=== PATIENT | male | born 1965 | race Caucasian/White ===

== ENCOUNTER 2020-02-20 08:08 | Outpatient (REF) | payer BC, SELFPAY | END 2020-02-20 08:09 | disposition home or self-care (01) | LOC: HO.HMGCLDS 08:08 | PROVIDERS: PCP Internal Medicine; Visit Provider Internal Medicine | DX: Z20.828 Contact with and (suspected) exposure to other viral communicable diseases (principal) | CPT/HCPCS: C9803; U0003 ==

== ENCOUNTER 2020-08-17 10:24 | Outpatient (REF) | payer BC, SELFPAY ==
[2020-08-17 10:59] LABS: MANUAL DIFF FLAG NO
[2020-08-17 11:02] LABS: Basophils Absolute Auto 0.1 X10*3/uL (0.0-0.2); Basophils Percent Auto 0.7 % (0-2); Eosinophils Absolute Auto 0.5 X10*3/uL (0.0-0.4); Eosinophils Percent Auto 7.1 % (0-4); Hematocrit 47.4 % (42-52); Hemoglobin 15.2 g/dl (14.0-18.0); Imm Gran Abs Auto 0.02 X10*3/uL (0.00-0.03); Imm Gran Pct Auto 0.3 % (0.0-0.4); Lymphocytes Absolute Auto 2.6 X10*3/uL (1.2-4.9); Lymphocytes Percent Auto 37.7 % (20-40); Mean Corpuscular HGB Conc 32.1 g/dl (31.0-36.0); Mean Corpuscular Hemoglobin 29.5 pg (27.0-33.0); Mean Platelet Volume 9.7 fL (9.4-12.4); Monocytes Absolute Auto 0.9 X10*3/uL (0.1-1.2); Monocytes Percent Auto 13.3 % (2-11); Neutrophils Absolute Auto 2.8 X10*3/uL (2.0-8.3); Neutrophils Percent Auto 40.9 % (45-73); Platelet Count 256 X10*3/uL (160-400); Red Blood Count 5.15 X10*6/uL (4.60-5.80); Red Cell Distribution Width 13.5 % (11.0-16.0); White Blood Count 6.8 X10*3/uL (4.8-10.8)
[2020-08-17 11:18] LABS: Alanine Aminotransferase 48 U/L (0-40); Albumin Level 4.4 g/dL (3.5-5.0); Alkaline Phosphatase 71 U/L (39-117); Anion Gap 12 (12-20); Aspartate Amino Transferase 38 U/L (5-37); Bilirubin Total 0.5 mg/dL (0.0-1.0); Blood Urea Nitrogen 16 mg/dL (9-16); Calcium 9.9 mg/dL (8.4-10.2); Carbon Dioxide 24 mmol/L (22-29); Chloride 106 mmol/L (96-108); Cholesterol 206 mg/dL; Estimated Glomerular Filt Rate > 60; Glucose Fasting 101 mg/dL (60-99); HDL Cholesterol 73 mg/dL; LDL Cholesterol Calculated 106 mg/dl; Potassium 4.8 mmol/L (3.3-5.1); Sodium 137 mmol/L (135-145); Total Protein 7.3 g/dL (6.5-8.0); Triglycerides 137 mg/dL
[2020-08-17 11:40] LABS: Prostate Specific Antigen Scr 1.12 ng/mL (<0.05-4.0)
== END 2020-08-17 10:25 | disposition home or self-care (01) ==
LOC: HO.LAB 10:24
PROVIDERS: PCP Internal Medicine; Visit Provider Internal Medicine
DX: Z00.00 Encounter for general adult medical examination without abnormal findings (principal); Z12.5 Encounter for screening for malignant neoplasm of prostate
CPT/HCPCS: 36415; 80053; 80061; 84153; 85025

== ENCOUNTER → 2021-06-26 09:16 | Outpatient (BNVA) | payer BC, SELFPAY | PROVIDERS: PCP Internal Medicine; Referring Provider Internal Medicine; Visit Provider Internal Medicine Gastroenterology | DX: Z13.89 Encounter for screening for other disorder (principal) ==

== ENCOUNTER 2021-09-30 07:45 | Outpatient (REF) | payer BC, SELFPAY ==
--- NOTE | ~2021-09-30 | US_ITS ---
EXAMINATION: US ABDOMEN COMPLETE CLINICAL INFORMATION: Hemangioma of intra-abdominal structures. Elevated LFTs. COMPARISON: CT abdomen and pelvis 07/17/2013, MRI abdomen 06/23/2008, ultrasound abdomen 05/14/2008. TECHNIQUE: Real-time imaging of the abdominal viscera. FINDINGS: PANCREAS: Mostly obscured by gas. ABDOMINAL AORTA: The proximal, mid, and distal segments are normal in caliber. INFERIOR VENA CAVA: Visualized portions are normal. LIVER: The liver is normal in size. The liver contour is normal. There is increased liver echogenicity. No focal hepatic lesion. There is no intrahepatic biliary duct dilatation seen. GALLBLADDER: Gallbladder wall thickness is 0.3 cm. The gallbladder is physiologically distended without evidence of stones, sludge, polyps, wall thickening or pericholecystic fluid. COMMON BILE DUCT: Normal in caliber measuring 0.3 cm in diameter. RIGHT KIDNEY: Normal. No hydronephrosis. No renal calculi or focal parenchymal lesions. The kidney measures 11.6 cm in maximum dimension. LEFT KIDNEY: Normal. No hydronephrosis. No renal calculi or focal parenchymal lesions. The kidney measures 11.6 cm in maximum dimension. SPLEEN: Normal. The spleen measures 9.8 cm in maximum dimension. FREE FLUID: None. US/US abdomen complete IMPRESSION: Mild hepatic steatosis without focal lesion. Otherwise unremarkable complete abdomen ultrasound.
== END 2021-09-30 07:46 | disposition home or self-care (01) ==
LOC: HO.US 07:45
PROVIDERS: PCP Internal Medicine; Visit Provider Internal Medicine Gastroenterology
DX: D18.03 Hemangioma of intra-abdominal structures (principal); R79.89 Other specified abnormal findings of blood chemistry
CPT/HCPCS: 76700

== ENCOUNTER 2021-10-10 10:03 | Day surgery (SDC) | payer BC, SELFPAY ==
--- NOTE | 2021-10-09 11:47 | HO.ANESPROP2 ---
HPI - Anesthesia Eval Consult details Narrative: 56yo M for Upper Endoscopy and Colonoscopy PMFSH Active Problems Active Problems: All Active Problems (Updated 10/06/21 @ 11:53 by Becca Cueva RN) GERD (gastroesophageal reflux disease) (Acute) Hepatic hemangioma (Acute) Chronic diarrhea (Acute) Lactose intolerance (Acute) Mood disorder (Acute) Elevated LFTs (Acute) History of colon polyps (Acute) Past Medical History Medical History (Updated 10/06/21 @ 11:53 by Becca Cueva RN) Acromioclavicular joint arthritis Chronic hepatitis Forearm fractures, both bones, closed (~08/2011) Pulmonary embolism and infarction (~06/2011) Rotator cuff impingement syndrome Surgical History Surgical History (Updated 10/06/21 @ 11:50 by Becca Cueva RN) History of right inguinal hernia repair Hx of colonoscopy Hx of colonoscopy S/P right rotator cuff repair (~11/2011) Social History Social History Patient Tobacco Use Status: Current everyday Tobacco user Tobacco use type: Cigarette Cigarette Packs Per Day: 0.5 Cigarettes Per Day: 10.0 Second Hand Smoke Exposure: No Use of substances other than those prescribed or required for medical reasons: No Are you DNR?: No Advance Directives: No Advance Directives Information Provided: Yes Advance Directives on File: No Meds Allergies Allergy/AdvReac Type Severity Reaction Status Date / Time No Known Allergies Allergy Verified 06/26/21 09:19 Home Medications Medication Instructions Recorded Confirmed Last Taken Type omeprazole 20 mg capsule,delayed 20 mg PO DAILY 06/26/21 10/06/21 Unknown History release tadalafil 5 mg tablet mg PO 06/26/21 06/26/21 Unknown History Exam Exam Date and Time: October 09, 2021 1147 Assessment and Plan Assessment Anesthesia Assessment: Chart Reviewed
[2021-10-10 10:11] VITALS: BMI 28.6
--- NOTE | 2021-10-10 10:15 | MHC.SHP ---
Pre-Procedural Eval Section A Date of Service: 10/10/21 The patient is an INPATIENT: No The History & Physical has been completed within 30 days and I have reviewed it.: No Section B Chief Complaint: screening reflux Details of Present Illness: GERD, colon cancer screening Relevant Family History (Specify if Yes): No Present Medications: see Short Stay Collaborative assessment Medical History: Significant History (Acromioclavicular joint arthritis Chronic hepatitis Forearm fractures, both bones, closed (~08/2011) Pulmonary embolism and infarction (~06/2011) Rotator cuff impingement syndrome) History of Previous Operations: Relevant previous surgery/procedure and date(s) (Acromioclavicular joint arthritis Chronic hepatitis Forearm fractures, both bones, closed (~08/2011) Pulmonary embolism and infarction (~06/2011) Rotator cuff impingement syndrome) Allergies: Allergies Allergy/AdvReac Type Severity Reaction Status Date / Time No Known Allergies Allergy Verified 06/26/21 09:19 Review of Systems Sugical H&P ROS: Negative: Constitution, Cardiovascular, Respiratory and Gastrointestinal Exam Surgical H&P Exam: Normal: Heart, Normal: Lungs, Normal: Extremities and Normal: Abdomen Plan Diagnosis/Plan: Unchanged I have reviewed the history and physical and performed a pertinent physical examination on my patient. No changes have occurred unless specified.
[2021-10-10 10:20] VITALS: BP 138/81; PULSE 77; RESP 16; TEMP 36.4; O2SAT 97
[2021-10-10] MEDS: Lactated Ringers 1,000 ML 100 ML IVCONT (10:28)
--- NOTE | 2021-10-10 11:19 | P.BOP_ITS ---
Brief Operative Note Date of Service: 10/10/21 Pre-op diagnosis: Colon cancer screening, GERD Post-op diagnosis: other (GERD, gastritis, colon polyps, diverticulosis, hemorrhoids) Procedure: FLEXIBLE TRANSORAL UPPER GASTROINTESTINAL ENDOSCOPY WITH BIOPSIES AND COLONOSCOPY TILL CECUM WITH SNARE POLYPECTOMY UPPER ENDOSCOPY Consent: Indications for the procedure and potential complications of bleeding, perforation, reaction to medications and missed diagnosis were discussed with the patient and informed consent was obtained. Instrument: Olympus GIF H 190 mid size upper endoscope Monitoring: Vital signs and clinical assessment, continuous EKG monitoring, Pulse oximetry, Carbon Dioxide monitoring and blood pressure monitoring were done throughout the procedure. Procedure: The patient was placed in the left lateral decubitis position and pre-procedure medications were administered and a bite block was placed. The endoscope was inserted into the mouth and advanced under direct vision to the third part of duodenum. A careful inspection was made as the upper endoscope was withdrawn including a retroflexed examination of the proximal stomach; Findings and interventions are described below. Findings: Larynx: Normal Esophagus: GE junction at 40 cms. No esophagitis. A 1 cms tongue of possible Dewey's - biopsied. Stomach: Mild gastric erythema. Biopsies were obtained. Grade 2 flap valve on retroflexed examination of the cardia. Duodenum: Normal bulb and descending duodenum Intervention: Biopsies as noted above COLONOSCOPY PROCEDURE NOTE Consent: Indications for the procedure and potential complications of bleeding, perforation, reaction to medications and missed diagnosis were discussed with the patient and informed consent was obtained. Instrument: Olympus PCF H 190 L variable stiffness pediatric colonoscope Monitoring: Vital signs and clinical assessment, intermittent blood pressure monitoring, continuous EKG monitoring, Pulse oximetry and Carbon Dioxide monitoring were done throughout the procedure. Colon withdrawl time was 22 minutes. Procedure: The patient was placed in the left lateral decubitis position and pre-procedure medications were administered. After a digital rectal examination of the ano-rectum, the video colonoscope was inserted into the rectum and advanced through the colon to the cecum. The colonoscope was slowly withdrawn in a retrograde panoramic fashion and the colon mucosa was carefully examined including a retroflexed view of the rectum. Findings and interventions are described below. Procedure Difficulty: : Without difficulty Findings: Terminal Ileum: Not evaluated Cecum: Normal Ascending Colon: Scattered diverticulosis throughout the colon Transverse Colon: Scattered diverticulosis throughout the colon Descending Colon: Scattered diverticulosis throughout the colon Sigmoid Colon: Two 10-12 mm sessile polyps removed with a hot snare. Moderate diverticulosis Rectum: Normal Ano-rectum: Moderate internal hemorrhoids Colon preparation: Good after some irrigation. There was a thin layer of adherent stool in the right colon which could not be flushed off Impression and Post Procedure Diagnosis: Endoscopy Findings: ESOPHAGUS: GE junction at 40 cms. No esophagitis. A 1 cms tongue of possible Dewey's - biopsied. STOMACH: Mild antral gastritis Colonoscopy Findings: Two medium sized polyps removed Moderate diverticulosis seen in the entire colon Moderate hemorrhoids on retroflexed exam. Plan: Await pathology results Patient has an appointment on 10/23/21 in the [facility] with Eldon Rosen M.D. Repeat Colonoscopy interval based on path results - in 3-5 years if polyps are adenomatous and 5 years if polyps are hyperplastic. Above findings were reviewed with the patient and GERD, colon polyps and diverticulosis handouts were given in the discharge area Surgeon: Eldon Rosen MD Anesthesia: MAC (Dr Marquis) Was an Tax Investigator used for this Procedure?: Yes Tax Investigator: Tariq He Estimated blood loss (mL): 0 Pathology: other (A: ANTRUM BXS R/O H PYLORI B: DISTAL ESOPHAGUS BXS R/O BARRETTS C: SIGMOID COLON POLYPS) Condition: stable Disposition: PACU
[2021-10-10 12:18] VITALS: BP 111/76; PULSE 74; RESP 17; TEMP 36.9; O2SAT 96
[2021-10-10 12:33] VITALS: BP 119/82; PULSE 76; RESP 18; TEMP 36.9; O2SAT 97
--- NOTE | 2021-10-10 15:04 | W.PM.OPN ---
Operative Note Operative Note Date of Service: 10/10/21 Narrative: Pre-op diagnosis: Colon cancer screening, GERD Post-op diagnosis:?other (GERD, gastritis, colon polyps, diverticulosis, hemorrhoids) Procedure: FLEXIBLE TRANSORAL UPPER GASTROINTESTINAL ENDOSCOPY WITH BIOPSIES AND COLONOSCOPY TILL CECUM WITH SNARE POLYPECTOMY UPPER ENDOSCOPY Consent:?Indications for the procedure and potential complications of bleeding, perforation, reaction to medications and missed diagnosis were discussed with the patient and informed consent was obtained. Instrument:?Olympus GIF H 190 mid size upper endoscope Monitoring: Vital signs and clinical assessment, continuous EKG monitoring, Pulse oximetry, Carbon Dioxide monitoring and blood pressure monitoring were done throughout the procedure. Procedure:?The patient was placed in the left lateral decubitis position and pre-procedure medications were administered and a bite block was placed. The endoscope was inserted into the mouth and advanced under direct vision to the third part of duodenum. A careful inspection was made as the upper endoscope was withdrawn including a retroflexed examination of the proximal stomach; Findings and interventions are described below. Findings: Larynx:? Normal Esophagus:?GE junction at 40 cms. No esophagitis. A 1 cms tongue of possible Dewey's - biopsied. Stomach:?Mild gastric erythema. Biopsies were obtained. Grade 2 flap valve on retroflexed examination of the cardia. Duodenum:?Normal bulb and descending duodenum Intervention:?Biopsies as noted above COLONOSCOPY PROCEDURE NOTE Consent:?Indications for the procedure and potential complications of bleeding, perforation, reaction to medications and missed diagnosis were discussed with the patient and informed consent was obtained. Instrument:?Olympus PCF H 190 L variable stiffness pediatric colonoscope Monitoring:?Vital signs and clinical assessment, intermittent blood pressure monitoring, continuous EKG monitoring, Pulse oximetry and Carbon Dioxide monitoring were done throughout the procedure. Colon withdrawl time was 22 minutes. Procedure:?The patient was placed in the left lateral decubitis position and pre-procedure medications were administered. After a digital rectal examination of the ano-rectum, the video colonoscope was inserted into the rectum and advanced through the colon to the cecum. The colonoscope was slowly withdrawn in a retrograde panoramic fashion and the colon mucosa was carefully examined including a retroflexed view of the rectum. Findings and interventions are described below. Procedure Difficulty:?: Without difficulty Findings: Terminal Ileum: Not evaluated Cecum:? Normal Ascending Colon:??Scattered diverticulosis throughout the colon Transverse Colon:??Scattered diverticulosis throughout the colon Descending Colon:? Scattered diverticulosis throughout the colon Sigmoid Colon:? Two 10-12 mm sessile polyps removed with a hot snare. Moderate diverticulosis Rectum:??Normal Ano-rectum:??Moderate internal hemorrhoids Colon preparation:? Good after some irrigation. There was a thin layer of adherent stool in the right colon which could not be flushed off Impression and Post Procedure Diagnosis: Endoscopy Findings: ESOPHAGUS: GE junction at 40 cms. No esophagitis. A 1 cms tongue of possible Dewey's - biopsied. STOMACH: Mild antral gastritis Colonoscopy Findings: Two medium sized polyps removed Moderate diverticulosis seen in the entire colon Moderate hemorrhoids on retroflexed exam. Plan: Await pathology results Patient has an appointment on 10/23/21 in the GI Clinic with Eldon Rosen M.D. Repeat Colonoscopy interval based on path results - in 3-5 years if polyps are adenomatous and 5 years if polyps are hyperplastic. Above findings were reviewed with the patient and GERD, colon polyps and diverticulosis handouts were given in the discharge area Surgeon: Eldon Rosen MD Anesthesia:?MAC (Dr Marquis) Was an [employer] Executive Director used for this Procedure?:?Yes [employer] Executive Director:?Tariq He Estimated blood loss (mL):?0 Pathology:?other (A: ANTRUM BXS R/O H PYLORI? B: DISTAL ESOPHAGUS BXS R/O BARRETTS? C: SIGMOID COLON POLYPS) Condition:?stable Disposition:?PACU
== END 2021-10-10 13:16 | disposition home or self-care (01) ==
PROVIDERS: PCP Internal Medicine; Visit Provider Internal Medicine Gastroenterology
PROC: (CPT 45385; principal; 2021-10-10 11:10)
DX: Z12.11 Encounter for screening for malignant neoplasm of colon (principal); Z86.010 Personal history of colon polyps; D12.5 Benign neoplasm of sigmoid colon; K57.30 Diverticulosis of large intestine without perforation or abscess without bleeding; K64.8 Other hemorrhoids; K21.9 Gastro-esophageal reflux disease without esophagitis; K29.60 Other gastritis without bleeding; D18.03 Hemangioma of intra-abdominal structures; E73.9 Lactose intolerance, unspecified; Z86.19 Personal history of other infectious and parasitic diseases; Z86.711 Personal history of pulmonary embolism; Z79.899 Other long term (current) drug therapy; F17.210 Nicotine dependence, cigarettes, uncomplicated
CPT/HCPCS: 45385; 43239; 88305; 88342

== ENCOUNTER 2021-12-12 14:17 | Outpatient (REF) | payer BC, SELFPAY ==
--- NOTE | ~2021-12-12 | US_ITS ---
EXAMINATION: US SOFT TISSUE NECK CLINICAL INFORMATION: Left-sided pain. Question clogged duct. COMPARISON: Neck CT June 2016 TECHNIQUE: Ultrasound of the left submandibular area. FINDINGS: There are 2 left cervical lymph node adjacent to the submandibular gland. These are upper normal in size and demonstrate normal ultrasound morphology. These measure 1.2 x 1.2 x 0.6 cm and 1.2 x 0.7 x 1.2 cm. Left submandibular gland is prominent and has a slightly heterogeneous echotexture. There is a tubular central cystic area questionable for duct dilatation. No stone is appreciated by ultrasound. US/US soft tiss head and/or neck IMPRESSION: Prominent slightly heterogeneous left submandibular gland with central cystic structure questionable for duct dilatation. Follow-up CT or MR imaging of the neck recommended. Adjacent left submandibular lymphadenopathy. Lymph nodes are upper normal in size and demonstrate normal ultrasound morphology and flow.
== END 2021-12-12 14:18 | disposition home or self-care (01) ==
LOC: HO.US 14:17
PROVIDERS: Visit Provider Internal Medicine
DX: D18.03 Hemangioma of intra-abdominal structures (principal); R79.89 Other specified abnormal findings of blood chemistry
CPT/HCPCS: 76536

== ENCOUNTER 2021-12-27 06:59 | Outpatient (REF) | payer BC, SELFPAY ==
[2021-12-27 07:20] LABS: MANUAL DIFF FLAG NO
[2021-12-27 08:24] LABS: Basophils Absolute Auto 0.1 X10*3/uL (0.0-0.2); Basophils Percent Auto 0.6 % (0-2); Eosinophils Absolute Auto 0.3 X10*3/uL (0.0-0.4); Eosinophils Percent Auto 4.3 % (0-4); Hematocrit 44.6 % (42.0-52.0); Hemoglobin 14.5 g/dl (14.0-18.0); Imm Gran Abs Auto 0.04 X10*3/uL (0.00-0.03); Imm Gran Pct Auto 0.5 % (0.0-0.4); Lymphocytes Absolute Auto 2.2 X10*3/uL (1.2-4.9); Lymphocytes Percent Auto 27.5 % (20-40); Mean Corpuscular HGB Conc 32.5 g/dl (31.0-36.0); Mean Corpuscular Hemoglobin 29.8 pg (27.0-33.0); Mean Corpuscular Volume 91.8 fL (80.0-98.0); Mean Platelet Volume 10.1 fL (9.4-12.4); Monocytes Percent Auto 12.8 % (2-11); Neutrophils Absolute Auto 4.3 x10*3/uL (2.0-8.3); Neutrophils Percent Auto 54.3 % (45-73); Platelet Count 241 X10*3/uL (160-400); Red Blood Count 4.86 X10*6/uL (4.60-5.80); Red Cell Distribution Width 12.8 % (11.0-16.0)
[2021-12-27 08:28] LABS: Prothrombin Time 11.1 SEC (10.0-13.1)
[2021-12-27 09:05] LABS: Alanine Aminotransferase 64 U/L (0-40); Albumin Level 4.4 g/dL (3.5-5.0); Alkaline Phosphatase 67 U/L (39-117); Anion Gap 16 (12-20); Aspartate Amino Transferase 51 U/L (5-37); Bilirubin Total 0.6 mg/dL (0.0-1.0); Blood Urea Nitrogen 16 mg/dL (9-16); Carbon Dioxide 22 mmol/L (22-29); Chloride 104 mmol/L (96-108); Estimated Glomerular Filt Rate > 60; Glucose Random 91 mg/dL (60-115); Potassium 3.9 mmol/L (3.3-5.1); Sodium 138 mmol/L (135-145); Total Protein 7.1 g/dL (6.5-8.0)
[2021-12-27 09:08] LABS: Alanine Aminotransferase 65 U/L (0-40); Albumin Level 4.4 g/dL (3.5-5.0); Alkaline Phosphatase 68 U/L (39-117); Anion Gap 15 (12-20); Aspartate Amino Transferase 51 U/L (5-37); Bilirubin Total 0.6 mg/dL (0.0-1.0); Blood Urea Nitrogen 16 mg/dL (9-16); Calcium 9.1 mg/dL (8.4-10.2); Carbon Dioxide 22 mmol/L (22-29); Chloride 104 mmol/L (96-108); Cholesterol 190 mg/dL; Estimated Glomerular Filt Rate > 60; Glucose Random 91 mg/dL (60-115); HDL Cholesterol 63 mg/dL; LDL Cholesterol Calculated 106 mg/dl; Lipase 66 U/L (8-78); Sodium 137 mmol/L (135-145); Total Protein 7.1 g/dL (6.5-8.0); Triglycerides 109 mg/dL
[2021-12-27 09:31] LABS: Vitamin D 25-OH Total 39.7 ng/mL (>30)
[2021-12-27 09:32] LABS: Prostate Specific Antigen 1.02 ng/mL (<0.05-4.0)
[2021-12-27 09:49] LABS: Vitamin B12 485 pg/mL (200-900)
[2021-12-29 04:57] LABS: ~HepC Num1 11.84 S/CO (0.00-0.79); ~Hepatitis C Antibody Reactive (Nonreactive)
== END 2021-12-27 07:00 | disposition home or self-care (01) ==
LOC: HO.LAB 06:59
PROVIDERS: Internal Medicine Gastroenterology; Visit Provider Internal Medicine
DX: Z00.00 Encounter for general adult medical examination without abnormal findings (principal); R79.89 Other specified abnormal findings of blood chemistry; K21.9 Gastro-esophageal reflux disease without esophagitis; Z13.220 Encounter for screening for lipoid disorders; Z12.5 Encounter for screening for malignant neoplasm of prostate
CPT/HCPCS: 36415; 80053; 80061; 82306; 82607; 83690; 84153; 85025; 85610; 86803

== ENCOUNTER 2021-12-31 07:39 | Outpatient (REF) | payer BC, SELFPAY ==
--- NOTE | ~2021-12-31 | CT_ITS ---
EXAMINATION: CT SOFT TISSUE NECK WITH CONTRAST CLINICAL INFORMATION: 56-year-old with left neck mass. COMPARISON: 12/12/2021 ultrasound, 07/06/2016 CT neck. TECHNIQUE: Following the intravenous administration of 60 mL of Omnipaque 350 intravenous contrast, helical imaging was performed in the axial plane with generation of coronal and sagittal reformatted images. This CT examination was performed using dose optimization techniques as appropriate, variously including the following: *Automated exposure control *Adjustment of mA and/or kV according to patient size (this includes techniques or standardized protocols for targeted exams where dose is matched to indication/reason for exam; i.e. extremities or head) *Use of iterative reconstruction technique DLP: 403 mGy-cm. Skull Base: The bony skull base and visualized calvarium appear grossly intact.?Limited assessment of the visualized intracranial and orbital soft tissue structures is unrevealing.?The visualized mastoids, middle ear cavities and sinonasal cavity are clear. Suprahyoid Neck: The nasopharynx and retropharynx, stack attendant and parapharyngeal spaces appear within normal limits with a normal appearance to the oropharynx. There is a tiny calcified tonsillolith in the left pharyngeal tonsil, stable in appearance. Parotid glands are bilaterally symmetric and normal in morphology and attenuation. Streak and beam hardening artifact partially obscures evaluation of the oral cavity. Note is made of a 4 mm calculus in the anterior portion of Yessenia's duct on the left, which is smaller and more distally located than a previously identified calculus in the more proximal aspect of Gilpin's duct. Additionally, there is a 2 mm calculus in the proximal aspect of Gilpin's duct on the left, which is similar to previous study. No calculi are seen on the right. The floor of the mouth structures are otherwise intact and unremarkable. The right submandibular gland appears within normal limits. The left submandibular gland has reduced in size since the previous CT likely reflecting resolution of sialoadenitis from the previous scan. There is intraglandular ductal prominence of the left submandibular gland on the current study consistent with a mild degree of sialectasia. There are multiple, nonpathologic-appearing lymph nodes in the submandibular space, submental space and IJ chains bilaterally, which are stable in appearance from previous CT. Infrahyoid Neck: The hypopharynx and larynx appear within normal limits. The thyroid gland is within normal limits. No infrahyoid lymphadenopathy. Mild atheromatous changes of the carotid bulbs are noted bilaterally. Upper Chest: There are paraseptal pulmonary emphysematous changes in both upper lobes with a prominent subpleural bleb in the medial left lung apex similar in appearance to the previous study. The visualized mediastinum demonstrates scattered small nonenlarged lymph nodes similar to previous study. Skeletal: Multilevel DDD and spondylosis noted throughout the cervical spine, similar in appearance to the previous study. [id number] bilateral AC joint arthropathy noted on current study left more than right. Other Comments: None. CT/CT soft tissue neck w IV con IMPRESSION: 1. 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 2. Multiple upper cervical lymph nodes stable from previous CT consistent with benign findings. 3. Pulmonary parenchymal findings as discussed above similar to the previous exam and skeletal findings as discussed above.
[2021-12-31] MEDS: iohexoL 350 MG/ML 100 ML INFUS..BTL IV (08:39)
== END 2021-12-31 07:40 | disposition home or self-care (01) ==
LOC: HO.CT 07:39
PROVIDERS: Visit Provider Otolaryngology
DX: R22.1 Localized swelling, mass and lump, neck (principal)
CPT/HCPCS: 70491; Q9967

== ENCOUNTER 2023-02-27 07:03 | Outpatient (REF) | payer BC, SELFPAY ==
[2023-02-27 07:28] LABS: MANUAL DIFF FLAG NO
[2023-02-27 07:44] LABS: Basophils Absolute Auto 0.1 X10*3/uL (0.0-0.2); Basophils Percent Auto 0.7 % (0-2); Eosinophils Absolute Auto 0.3 X10*3/uL (0.0-0.4); Eosinophils Percent Auto 4.6 % (0-4); Hematocrit 45.2 % (42.0-52.0); Hemoglobin 15.1 g/dl (14.0-18.0); Imm Gran Abs Auto 0.03 X10*3/uL (0.00-0.03); Imm Gran Pct Auto 0.4 % (0.0-0.4); Lymphocytes Absolute Auto 2.7 X10*3/uL (1.2-4.9); Lymphocytes Percent Auto 38.8 % (20-40); Mean Corpuscular HGB Conc 33.4 g/dl (31.0-36.0); Mean Corpuscular Hemoglobin 29.8 pg (27.0-33.0); Mean Corpuscular Volume 89.2 fL (80.0-98.0); Mean Platelet Volume 9.3 fL (9.4-12.4); Monocytes Absolute Auto 0.8 X10*3/uL (0.1-1.2); Monocytes Percent Auto 12.2 % (2-11); Neutrophils Percent Auto 43.3 % (45-73); Platelet Count 215 X10*3/uL (160-400); Red Blood Count 5.07 X10*6/uL (4.60-5.80); Red Cell Distribution Width 13.4 % (11.0-16.0); White Blood Count 6.9 X10*3/uL (4.8-10.8)
[2023-02-27 08:10] LABS: Alanine Aminotransferase 69 U/L (0-40); Albumin Level 3.9 g/dL (3.5-5.0); Alkaline Phosphatase 72 U/L (39-117); Anion Gap 12 (12-20); Aspartate Amino Transferase 48 U/L (5-37); Bilirubin Total 0.7 mg/dL (0.0-1.0); Blood Urea Nitrogen 16 mg/dL (9-16); Calcium 8.9 mg/dL (8.4-10.2); Carbon Dioxide 24 mmol/L (22-29); Chloride 107 mmol/L (96-108); Cholesterol 204 mg/dL (<200); Estimated Glomerular Filt Rate > 60; Glucose Fasting 105 mg/dL (60-99); HDL Cholesterol 38 mg/dL (>40); Potassium 4.3 mmol/L (3.3-5.1); Sodium 139 mmol/L (135-145); Total Protein 7.1 g/dL (6.5-8.0); Triglycerides 582 mg/dL (<150)
[2023-02-27 08:33] LABS: Prostate Specific Antigen Scr 1.02 ng/mL (<0.05-4.0)
[2023-03-02 18:35] LABS: HCV Log PCR <1.18 NOT DETECTED Log IU/mL (NOT DETECTED); HepC Viral Load <15 NOT DETECTED IU/mL (NOT DETECTED)
== END 2023-02-27 07:04 | disposition home or self-care (01) ==
LOC: HO.LAB 07:03
PROVIDERS: PCP Internal Medicine; Visit Provider Internal Medicine
DX: Z12.5 Encounter for screening for malignant neoplasm of prostate (principal); R79.89 Other specified abnormal findings of blood chemistry; K21.9 Gastro-esophageal reflux disease without esophagitis; K57.90 Diverticulosis of intestine, part unspecified, without perforation or abscess without bleeding; Z86.19 Personal history of other infectious and parasitic diseases
CPT/HCPCS: 36415; 80053; 80061; 84153; 85025; 87522

== ENCOUNTER 2023-09-16 06:41 | Outpatient (REF) | payer BC, SELFPAY ==
[2023-09-16 08:14] LABS: Alanine Aminotransferase 54 U/L (0-40); Albumin Level 4.4 g/dL (3.5-5.0); Alkaline Phosphatase 73 U/L (39-117); Anion Gap 14 (12-20); Aspartate Amino Transferase 53 U/L (5-37); Bilirubin Total 0.9 mg/dL (0.0-1.0); Blood Urea Nitrogen 16 mg/dL (9-16); Calcium 9.5 mg/dL (8.4-10.2); Carbon Dioxide 22 mmol/L (22-29); Chloride 105 mmol/L (96-108); Cholesterol 196 mg/dL (<200); Estimated Glomerular Filt Rate > 60; Glucose Fasting 97 mg/dL (60-99); HDL Cholesterol 78 mg/dL (>40); LDL Cholesterol Calculated 103 mg/dL (<100); Potassium 3.7 mmol/L (3.3-5.1); Sodium 137 mmol/L (135-145); Total Protein 7.3 g/dL (6.5-8.0); Triglycerides 78 mg/dL (<150)
== END 2023-09-16 06:42 | disposition home or self-care (01) ==
LOC: HO.LAB 06:41
PROVIDERS: PCP Internal Medicine; Visit Provider Internal Medicine
DX: R79.89 Other specified abnormal findings of blood chemistry (principal); E78.1 Pure hyperglyceridemia
CPT/HCPCS: 36415; 80053; 80061

== ENCOUNTER 2024-01-23 14:51 | Observation (INO) | payer BC, SELFPAY ==
--- NOTE | ~2024-01-23 | CT_ITS ---
EXAMINATION: CTA NECK WITH CONTRAST (STROKE) CTA BRAIN WITH CONTRAST (STROKE) CLINICAL INFORMATION: Suspect acute stroke. Assess for major vessel occlusion. COMPARISON: Concurrently performed CT of the head. TECHNIQUE: CTA of the head and neck was performed in the axial plane from the mediastinum to the skull vertex using 70 mL Omnipaque 350 intravenous contrast. Additional reformatted multiplanar images including maximum intensity projection MIP images are generated on the CT workstation. This CT examination was performed using dose optimization techniques as appropriate, variously including the following: *Automated exposure control *Adjustment of mA and/or kV according to patient size (this includes techniques or standardized protocols for targeted exams where dose is matched to indication/reason for exam; i.e. extremities or head) *Use of iterative reconstruction technique DLP: 1561 mGy-cm FINDINGS: CTA Head: The intracranial internal carotid arteries are normal in configuration. The anterior and middle cerebral arteries are patent with normal contrast enhancement and branching pattern. There is a normal anterior communicating artery complex. The vertebral and basilar arteries demonstrate normal enhancement without stenosis or occlusion. The posterior cerebral arteries have a normal caliber and branching pattern. The posterior communicating arteries are visualized. There is no evidence of stenosis, occlusion, aneurysm or arteriovenous malformation. CTA Neck: The visualized aortic arch and origins of the major vessels are unremarkable. Retropharyngeal course of the right proximal internal carotid artery. The right common, internal and external carotid arteries are otherwise normal in appearance. There is no evidence of a significant stenosis by NASCET criteria or a dissection. Retropharyngeal course of the left proximal internal carotid artery. The left common, internal and external carotid arteries are otherwise normal in appearance. There is no evidence of a significant stenosis by NASCET criteria or a dissection. The cervical portions of the vertebral arteries demonstrate normal enhancement. There is no evidence of a significant stenosis or a dissection. The visualized soft tissues are unremarkable. The visualized lung is unremarkable. The visualized osseous structures are unremarkable. CT/CT angio head neck stroke IMPRESSION: 1. No large vessel occlusion. 2. No significant stenosis in the major arteries of the neck. 3. Incidental note of retropharyngeal course of the bilateral proximal internal carotid arteries. Electronically signed by: Chaparrita Khan MD 01/23/2024 03:34 PM [facility]
--- NOTE | ~2024-01-23 | MR_ITS ---
EXAMINATION: MR BRAIN WITHOUT CONTRAST CLINICAL INFORMATION: Change in mental status. TIA/CVA versus partial seizure. COMPARISON: None available. Correlated to CT head and CT angiogram brain dated January 23, 2024. TECHNIQUE: MRI of the brain was obtained using routine sequences without contrast. FINDINGS: No restricted diffusion. No acute intracranial hemorrhage, mass effect, midline shift, hydrocephalus or herniation. Nonspecific few scattered punctate hyperintense T2 FLAIR signal, but most conspicuous in the left frontal white matter. Silva-white matter differentiation is normal. No signal abnormality, volume loss or restricted diffusion within the hippocampi. Posterior cranial fossa contents demonstrated no signal abnormality or mass effect. Sellar/suprasellar region is normal. Craniocervical junction is intact and normal. Midline structures are normal Flow-void signal within the main cerebral vessels is normal.. MR/MR head/brain wo con IMPRESSION: No acute stroke/nonhemorrhagic ischemia. No acute intracranial hemorrhage. Electronically signed by: Abdi Espinoza MD 01/25/2024 07:56 AM EST
--- NOTE | ~2024-01-23 | CT_ITS ---
EXAMINATION: CT HEAD WITHOUT CONTRAST (STROKE PROTOCOL) CLINICAL INFORMATION: Stroke protocol. COMPARISON: None available. TECHNIQUE: Contiguous axial imaging was performed from the skull base to vertex without intravenous administration of contrast. This CT examination was performed using dose optimization techniques as appropriate, variously including the following: *Automated exposure control *Adjustment of mA and/or kV according to patient size (this includes techniques or standardized protocols for targeted exams where dose is matched to indication/reason for exam; i.e. extremities or head) *Use of iterative reconstruction technique DLP: 704 mGy-cm RESULTS: There is no evidence of acute intracranial hemorrhage, acute large vessel infarct, midline shift or mass effect. The sepulveda-white differentiation is preserved. The ventricles and sulci are within normal limits in size and configuration. There is no evidence of hydrocephalus. There are no extraaxial collections. Osseous structures are intact. Paranasal sinuses and mastoid air cells are well aerated. CT/CT head for stroke IMPRESSION: No acute intracranial pathology. This critical result was discussed with at 15:14 EST hours on 01/23/24. It was ascertained that the content and urgency of the report was understood at the time of direct communication. Electronically signed by: Chaparrita Khan MD 01/23/2024 03:14 PM EST
--- NOTE | 2024-01-23 14:52 | ED_ITS ---
HPI - General Adult General Chief complaint: Stroke Stated complaint: Altered? Time Seen by Provider: 01/23/24 14:59 Source: patient and family () Mode of arrival: ambulatory Limitations: no limitations History of Present Illness ED Provider: Dr. Sixto Ordaz HPI narrative: 58-year-old male with a history of GERD, alcohol use disorder, tobacco use disorder who presents emergency department for evaluation of altered mental status. The patient states that he has a monthly dinner with his and friends. Patient got to the restaurant around 13:45 hours. He states that he went outside and smoked a cigarette and when he got back in at 14:00 hours he had difficulty communicating with his and friends. He states that he could see that people were talking to him but he could not hear their voices. He states that he became very emotional and started to get teary. He knew that he was in a restaurant but he did not know exactly where he was. His describes that the patient appeared to be scared and he looked like he was anxious. He was not talking but when he talked his speech was comprehensible. He did tell 1 of his friends to keep an eye on him since he was not feeling well. He also told his that he did not know where he was and he was emotional. The symptoms lasted for 53 minutes and resolved while he was in CT scan. After I finished the patient's examination he had a another brief episode where he told us that he did not know where he was and he felt very emotional. He also had a 3rd episode while he was here in the emergency department which was brief and resolved without treatment. Related Data Home Medications ?Medication ?Instructions ?Recorded ?Confirmed omeprazole 20 mg capsule,delayed 20 mg PO DAILY 06/26/21 10/23/21 release Allergies Allergy/AdvReac Type Severity Reaction Status Date / Time No Known Allergies Allergy Verified 01/23/24 14:54 Review of Systems 2 Review of Systems: Yes all other systems are reviewed and are negative [facility] Past Medical History [facility] Narrative: Social history: Patient is in his is here in the emergency department with him. Patient states that he drinks 2 beers and 2 shots daily. Patient smokes 1/4 pack of cigarettes per day. He denies drug use but states he occasionally smokes marijuana. He denies smoking marijuana see evening. Medical History (Updated 01/23/24 @ 16:41 by Sixto Ordaz MD) Forearm fractures, both bones, closed (~08/2011) Acromioclavicular joint arthritis Pulmonary embolism and infarction (~06/2011) Rotator cuff impingement syndrome Chronic hepatitis Surgical History (Updated 10/23/21 @ 07:57 by Eugenia Couch) History of esophagogastroduodenoscopy (EGD) Hx of colonoscopy Hx of colonoscopy S/P right rotator cuff repair (~11/2011) History of right inguinal hernia repair Social History Social History Patient Tobacco Use Status: Current everyday Tobacco user Tobacco use type: Cigarette Cigarette Packs Per Day: 0.5 Cigarettes Per Day: 10.0 Smoked in Last 30 Days: Yes Second Hand Smoke Exposure: No Use of substances other than those prescribed or required for medical reasons: No Advance Directives: No Advance Directives Information Provided: Yes Do you have a plan to hurt others: No Plan Physical Exam ED Vital Signs: Vital Signs - 24 hr 01/23/24 14:53 01/23/24 15:29 01/23/24 15:41 Temperature 97.8 F 98.0 F Pulse Rate 87 84 80 Respiratory Rate 18 23 H 16 Blood Pressure 133/87 152/99 H 149/104 H Pulse Oximetry 97 97 Oxygen Delivery Method Room Air Room Air 01/23/24 16:46 Temperature Pulse Rate 70 Respiratory Rate 136 H Blood Pressure 141/90 H Pulse Oximetry Oxygen Delivery Method BMI result Body Mass Index 27.3 Vital signs were normal. Exam: General: Awake, alert in no distress Head: Normocephalic, atraumatic EENT: PERRL, Lids normal, sclera normal, conjunctiva normal, nose normal , ears normal, throat without erythema or exudates Neck: Supple, no adenopathy Lung: breath sounds symmetric, no wheezing, rales or rhonchi Chest: symmetric movement, nontender Heart: regular rate and rhythm, normal S1, S2 no murmurs or rubs Abdomen: soft, non-tender, nondistended, normal bowel sounds Back: no vertebral tenderness, no CVAT Extremities: no deformities, moves all extremities symmetrically Neuro: General: Awake, alert, oriented, normal speech able to read sentences, identify situations in pictures, name objects and read nonsensical words. Cranial nerves: cranial nerves intact, Strength: Able to hold all extremities up against gravity, normal strength, symmetric Cerebellar: Good hfgufj-jg-rvfs-to-finger, good heel to harvey NIH Stroke Scale Internal: Initial- Upon Arrival Level of Consciousness: Alert Level of Consciousness Questions: Answers both questions correctly Level of Consciousness Commands: Performs both tasks correctly Best Gaze: Normal Visual: No visual loss Facial Palsy: Normal Motor Arm (Right): No drift Motor Arm (Left): No drift Motor Leg (Right): No drift Motor Leg (Left): No drift Limb Ataxia: Absent Sensory: Normal Best Language: No aphasia Dysarthia: Normal Extinction and Inattention: No abnormality Score: 0 Course Course Course Narrative: This is an RME: Additional HPI, ROS, PE not included below will be deferred to primary provider. RME assessment and note performed by: Kate Lopez PA-C This is a [id number]-male, with a hx of hepatitis, who presents to the ER with complaints of confusion starting at 2:00 p.m. patient was out with his at lunch and states that he suddenly did not realize where he was and was having difficulty with word finding. During my quick assessment, no neurologic focal deficits on examination. He is alert and oriented x4. Given new onset of confusion, and difficulty with word finding, stroke alert was activated. Immediately brought back to CT scan Plan: Stroke alert Medications Administered Discontinued Medications Generic Name Dose Route Start Last Admin Trade Name Reynaldoq PRN Reason Stop Dose Admin Aspirin 162 mg 01/23/24 16:28 01/23/24 16:39 Aspirin 81 Mg Tab.Chew PO 01/23/24 16:29 162 mg ONCE STA Administration Levetiracetam 500 mg in 100 mls @ 400 mls/hr 01/23/24 16:21 01/23/24 16:43 Keppra IV 01/23/24 16:35 400 mls/hr ONCE ONE Administration Iohexol 70 ml 01/23/24 15:17 01/23/24 15:17 Iohexol 350 Mg/Ml 100 Ml Infus..Btl IV 01/23/24 15:18 70 ml ONCE ONE Administration Lorazepam 1 mg 01/23/24 16:24 01/23/24 16:39 Lorazepam 2 Mg/Ml Vial IVPUSH 11/03/24 16:25 1 mg STAT STA Administration Medical Decision Making Medical Decision Making [facility] Narrative: 58-year-old male with a history of GERD, alcohol use disorder, tobacco use disorder who presents emergency department for evaluation of altered mental status. He was eating dinner with his and friends when he had sudden onset of difficulty hearing people, he could see there lips move but could not hear the sounds. He was confused and did not know where he was. He became emotional. He was able to talk and his speech was comprehensible but he was clear to his that he was not himself. Initial event lasted 53 minutes and resolved when he was here in the emergency department getting his CT scan. He had 2 more brief episodes where he could not recognize where he was and became emotional while he was here in the emergency department. Vital signs were unremarkable. Patient's physical examination was unremarkable in his neurologic exam was nonfocal. Differential diagnosis: ?Includes but is not limited to stroke, TIA, anxiety attack, partial seizure, brain tumor, drug-induced delirium, electrolyte abnormalities, anemia Following evaluation was ordered: CBC, BNP, lipid panel, PT/INR, troponin, CT scan of the head without IV contrast, CT angiogram of the head and neck Patient was initially treated with the following:Aspirin 162 mg, Ativan 1 mg IV, Keppra 500 mg IV Course: 16:30 CT scan of the head without IV contrast was unremarkable and CT angiogram head and neck was also unremarkable. Patient's NIH stroke scale was 0. I did discuss the patient's presentation with our covering neurologist, Dr. Griggs. He felt that the patient's symptoms could be secondary to partial seizure or TIA versus stroke. He recommended treating the patient with Keppra, admitting the patient for MRI and EEG. Patient also appears to be anxious and I did give him Ativan 1 mg IV as well. Given his negative NIH stroke scale in the possibility of a seizure, the patient was not a TNK candidate. Admission/Observation Consideration of admission/observation: Escalation of care including admission/observation considered (Yes) Consult Healthcare Provider Management of the patient was discussed with: Hospitalist Lab Data [facility] Lab Attestation statement: I reviewed the patient's lab results. My independent interpretation patient's laboratory evaluation is as follows: CBC was normal. CMP revealed an elevated glucose of 111 and a low bicarb of 18. Triglycerides elevated 615. LFTs are pending. Urine tox screen was negative. Ethanol level was elevated 258. 01/23/24 15:58 01/23/24 15:58 Labs: Lab Results 01/23/24 01/23/24 01/23/24 Range/Units 15:08 15:09 15:58 WBC 7.2 (4.8-10.8) X10*3/uL RBC 4.55 L (4.60-5.80) X10*6/uL Hgb 14.0 (14.0-18.0) g/dl Hct 41.8 L (42.0-52.0) % MCV 91.9 (80.0-98.0) fL MCH 30.8 (27.0-33.0) pg MCHC 33.5 (31.0-36.0) g/dl RDW 13.6 (11.0-16.0) % Plt Count 226 (160-400) X10*3/uL MPV 9.4 (9.4-12.4) fL Immature Gran % (Auto) 0.1 (0.0-0.4) % Neut % (Auto) 40.2 L (45-73) % Lymph % (Auto) 40.4 H (20-40) % [place] % (Auto) 13.0 H (2-11) % Eos % (Auto) 5.2 H (0-4) % Baso % (Auto) 1.1 (0-2) % Lymph # (Auto) 2.9 (1.2-4.9) X10*3/uL [place] # (Auto) 0.9 (0.1-1.2) X10*3/uL Eos # (Auto) 0.4 (0.0-0.4) X10*3/uL Baso # (Auto) 0.1 (0.0-0.2) X10*3/uL Abs Immat Gran (auto) 0.01 (0.00-0.03) X10*3/uL Absolute Neuts (auto) 2.9 (2.0-8.3) x10*3/uL Absolute Nucleated RBC 0.000 (0.0-0.012) X10*3/uL Nucleated RBC % (auto) 0.0 (0.0-0.2) /100WBC PT 11.8 (10.9-12.4) SEC Whole Blood PT 14.1 H (11.1-13.5) sec INR 1.0 (0.9-1.1) Whole Blood INR 1.2 H (0.9-1.1) APTT 29.9 (26.0-36.8) SEC Sodium 141 (135-145) mmol/L Potassium 3.7 (3.3-5.1) mmol/L Chloride 111 H (96-108) mmol/L Carbon Dioxide 18 L (22-29) mmol/L Anion Gap 16 (12-20) BUN 16 (9-16) mg/dL Creatinine 0.92 (0.5-1.4) mg/dL Estim Creat Clear Calc 85.3 Estimated GFR > 60 POC Glucose 127 H (60-115) mg/dL Random Glucose 94 (60-115) mg/dL Calcium 8.8 D (8.4-10.2) mg/dL Total Bilirubin 0.3 (0.0-1.0) mg/dL Direct Bilirubin 0.1 (0.0-0.5) mg/dL AST 61 H (5-37) U/L ALT 67 H (0-40) U/L Alkaline Phosphatase 101 (39-117) U/L Troponin I High Sens 4.1 (<3.5-35.0) ng/L Total Protein 7.0 (6.5-8.0) g/dL Albumin 4.0 (3.5-5.0) g/dL Triglycerides 615 H (<150) mg/dL Cholesterol 189 (<200) mg/dL LDL Cholesterol, Calc TNP HDL Cholesterol 48 (>40) mg/dL Urine Opiates Screen (Not Detect) Ur Buprenorphine Scrn (Not Detect) ng/mL Ur Oxycodone Screen (Not Detect) ng/mL Urine Methadone Screen (Not Detect) ng/mL Urine Fentanyl Screen (Not Detect) Ur Barbiturates Screen (Not Detect) Ur Phencyclidine Scrn (Not Detect) Ur Amphetamines Screen (Not Detect) U Benzodiazepines Scrn (Not Detect) Urine Cocaine Screen (Not Detect) U Marijuana (THC) Screen (Not Detect) Ethyl Alcohol 258 mg/dL 01/23/24 Range/Units 16:03 WBC (4.8-10.8) X10*3/uL RBC (4.60-5.80) X10*6/uL Hgb (14.0-18.0) g/dl Hct (42.0-52.0) % MCV (80.0-98.0) fL MCH (27.0-33.0) pg MCHC (31.0-36.0) g/dl RDW (11.0-16.0) % Plt Count (160-400) X10*3/uL MPV (9.4-12.4) fL Immature Gran % (Auto) (0.0-0.4) % Neut % (Auto) (45-73) % Lymph % (Auto) (20-40) % [place] % (Auto) (2-11) % Eos % (Auto) (0-4) % Baso % (Auto) (0-2) % Lymph # (Auto) (1.2-4.9) X10*3/uL [place] # (Auto) (0.1-1.2) X10*3/uL Eos # (Auto) (0.0-0.4) X10*3/uL Baso # (Auto) (0.0-0.2) X10*3/uL Abs Immat Gran (auto) (0.00-0.03) X10*3/uL Absolute Neuts (auto) (2.0-8.3) x10*3/uL Absolute Nucleated RBC (0.0-0.012) X10*3/uL Nucleated RBC % (auto) (0.0-0.2) /100WBC PT (10.9-12.4) SEC Whole Blood PT (11.1-13.5) sec INR (0.9-1.1) Whole Blood INR (0.9-1.1) APTT (26.0-36.8) SEC Sodium (135-145) mmol/L Potassium (3.3-5.1) mmol/L Chloride (96-108) mmol/L Carbon Dioxide (22-29) mmol/L Anion Gap (12-20) BUN (9-16) mg/dL Creatinine (0.5-1.4) mg/dL Estim Creat Clear Calc Estimated GFR POC Glucose (60-115) mg/dL Random Glucose (60-115) mg/dL Calcium (8.4-10.2) mg/dL Total Bilirubin (0.0-1.0) mg/dL Direct Bilirubin (0.0-0.5) mg/dL AST (5-37) U/L ALT (0-40) U/L Alkaline Phosphatase (39-117) U/L Troponin I High Sens (<3.5-35.0) ng/L Total Protein (6.5-8.0) g/dL Albumin (3.5-5.0) g/dL Triglycerides (<150) mg/dL Cholesterol (<200) mg/dL LDL Cholesterol, Calc HDL Cholesterol (>40) mg/dL Urine Opiates Screen Not Detected (Not Detect) Ur Buprenorphine Scrn Not Detected (Not Detect) ng/mL Ur Oxycodone Screen Not Detected (Not Detect) ng/mL Urine Methadone Screen Not Detected (Not Detect) ng/mL Urine Fentanyl Screen Not Detected (Not Detect) Ur Barbiturates Screen Not Detected (Not Detect) Ur Phencyclidine Scrn Not Detected (Not Detect) Ur Amphetamines Screen Not Detected (Not Detect) U Benzodiazepines Scrn Not Detected (Not Detect) Urine Cocaine Screen Not Detected (Not Detect) U Marijuana (THC) Screen Not Detected (Not Detect) Ethyl Alcohol mg/dL Independent Interpretation I performed an independent interpretation of an: EKG Interpretation: My independent interpretation patient's 12 EKG done at 15:18 hours is as follows: Normal sinus rhythm rate of 72, normal WI interval, QRS duration QTC interval, no ST segment elevation, no ST segment depression, no T-wave abnormalities, no PACs, no PVCs-this is a normal EKG Radiology Impression Discussion of test interpretation with radiology: I have reviewed the radiologist's reading. Radiologist Impression: CT head for stroke IMPRESSION: No acute intracranial pathology. This critical result was discussed with at 15:14 EST hours on 01/23/24. It was ascertained that the content and urgency of the report was understood at the time of direct communication. Electronically signed by: Chaparrita Khan MD 01/23/2024 03:14 PM EST Dictated By: Chaparrita Khan MD CT angio head neck stroke IMPRESSION: 1. No large vessel occlusion. 2. No significant stenosis in the major arteries of the neck. 3. Incidental note of retropharyngeal course of the bilateral proximal internal carotid arteries. Electronically signed by: Chaparrita Khan MD 01/23/2024 03:34 PM [facility] Dictated By: Chaparrita Khan MD Critical Care Time Critical Care Time Critical Care Time: Yes Total Critical Care Time: 45 Attestation: Critical Care: The patient was critically ill with a high probability of imminent or life threatening deterioration. I spent greater than 30 minutes of discontinuous time evaluating the patient,delivering critical care at the bedside, discussing and evaluating pertinent data with consultants. Critical care time does not include time spent performing separately billable procedures or teaching. Total time spent performing critical care was 45 minutes. Discharge Plan Discharge Clinical Impression: Altered mental status Patient Disposition: Admitted As Inpatient Print Language: [place]
[2024-01-23 14:53] VITALS: BP 133/87; PULSE 87; RESP 18; TEMP 36.6; O2SAT 97; BMI 27.3
--- NOTE | 2024-01-23 14:57 | ECG_ITS ---
Test Reason : stroke protocol Blood Pressure : / mmHG Vent. Rate : 072 BPM Atrial Rate : 072 BPM P-R Int : 176 ms QRS Dur : 102 ms QT Int : 372 ms P-R-T Axes : 059 050 039 degrees QTc Int : 407 ms Normal sinus rhythm Normal ECG When compared with ECG of 19-JUN-2019 06:28, No significant change was found Referred By: Kate Lopez Electronically Signed By:NATALIYA WHITAKER MD
[2024-01-23 15:16] LABS: Prothrombin Time Whole Bld POC 14.1 sec (11.1-13.5); ~PT, ~INR - Anti Coag Clinic 1.2 (0.9-1.1)
[2024-01-23 15:16] LABS: Glucose, Whole Blood 127 mg/dL (60-115)
--- NOTE | 2024-01-23 15:16 | PC.NURSE ---
Pt comes to ED via waiting room for c/o sudden onset of confusion earlier today. Pt brought into CT urgently per stroke protocol. Pt met in CT area for blood glucose, INR and IV access (bilat 20g)
[2024-01-23] MEDS: iohexoL 350 MG/ML 100 ML INFUS..BTL 70 ML IV (15:17)
[2024-01-23 15:29] VITALS: BP 152/99; PULSE 84; RESP 23; TEMP 36.7; O2SAT 97
[2024-01-23 15:41] VITALS: BP 149/104; PULSE 80; RESP 16
--- NOTE | 2024-01-23 15:44 | PC.NURSE ---
At this time Pt is A&Ox3, VSS, and afebrile. Skin is warm and dry Breaths and speech are slow, even, and unlabored. Pt reports he was out to lunch with a group of friends. Between [id number] Pt reports a sudden onset of confusion, loss of hearing, and difficulty writing. Symptoms and timeline confirmed by Pts spouse and she reports Pt presented as quite unwell. Dr. Ordaz at bedside for eval of Pt. During eval, Pt alerts the he is actively experiencing the same symptoms as earlier today. Pt on continuous cardiac monitoring. Blood lab draw in process and Pt to supply urine spec.
[2024-01-23 16:02] LABS: MANUAL DIFF FLAG NO
[2024-01-23 16:06] LABS: Basophils Absolute Auto 0.1 X10*3/uL (0.0-0.2); Basophils Percent Auto 1.1 % (0-2); Eosinophils Absolute Auto 0.4 X10*3/uL (0.0-0.4); Eosinophils Percent Auto 5.2 % (0-4); Hematocrit 41.8 % (42.0-52.0); Imm Gran Abs Auto 0.01 X10*3/uL (0.00-0.03); Imm Gran Pct Auto 0.1 % (0.0-0.4); Lymphocytes Absolute Auto 2.9 X10*3/uL (1.2-4.9); Lymphocytes Percent Auto 40.4 % (20-40); Mean Corpuscular HGB Conc 33.5 g/dl (31.0-36.0); Mean Corpuscular Hemoglobin 30.8 pg (27.0-33.0); Mean Corpuscular Volume 91.9 fL (80.0-98.0); Mean Platelet Volume 9.4 fL (9.4-12.4); Monocytes Absolute Auto 0.9 X10*3/uL (0.1-1.2); Neutrophils Absolute Auto 2.9 x10*3/uL (2.0-8.3); Neutrophils Percent Auto 40.2 % (45-73); Platelet Count 226 X10*3/uL (160-400); Red Blood Count 4.55 X10*6/uL (4.60-5.80); Red Cell Distribution Width 13.6 % (11.0-16.0); White Blood Count 7.2 X10*3/uL (4.8-10.8)
[2024-01-23 16:15] LABS: Ethanol 258 mg/dL
[2024-01-23 16:18] LABS: Anion Gap 16 (12-20); Blood Urea Nitrogen 16 mg/dL (9-16); Calcium 8.8 mg/dL (8.4-10.2); Carbon Dioxide 18 mmol/L (22-29); Chloride 111 mmol/L (96-108); Cholesterol 189 mg/dL (<200); Creatinine Clr Calc Pharmacy 85.3; Estimated Glomerular Filt Rate > 60; Glucose Random 94 mg/dL (60-115); HDL Cholesterol 48 mg/dL (>40); Potassium 3.7 mmol/L (3.3-5.1); Sodium 141 mmol/L (135-145); Triglycerides 615 mg/dL (<150)
[2024-01-23 16:19] LABS: Amphetamine Screen Urine Not Detected (Not Detect); Barbiturates, Urine Not Detected (Not Detect); Benzodiazepines Screen Urine Not Detected (Not Detect); Buprenorphine Scr Not Detected (Not Detect); Cannabinoid Screen Urine Not Detected (Not Detect); Cocaine Screen Urine Not Detected (Not Detect); Fentanyl, urine Not Detected (Not Detect); Methadone Screen, Urine Not Detected (Not Detect); Opiate Screen Urine Not Detected (Not Detect); Oxycodone Screen Urine Not Detected (Not Detect); Phencyclidine Screen Urine Not Detected (Not Detect)
[2024-01-23 16:24] LABS: Prothrombin Time 11.8 SEC (10.9-12.4)
[2024-01-23 16:26] LABS: Troponin-I High Sensitivity 4.1 ng/L (<3.5-35.0)
[2024-01-23 16:27] LABS: Partial Thromboplastin Time 29.9 SEC (26.0-36.8)
[2024-01-23] MEDS: Aspirin 81 MG TAB.CHEW 162 MG PO (16:39)
[2024-01-23] MEDS: LORazepam 2 MG/ML VIAL 1 MG IVPUSH (16:39)
[2024-01-23] MEDS: levETIRAcetam in NaCl (iso-os) 500 MG/100 ML PIGGYBACK 400 MG IV (16:43)
[2024-01-23 16:46] VITALS: BP 141/90; PULSE 70; RESP 136
[2024-01-23 16:59] LABS: Alanine Aminotransferase 67 U/L (0-40); Alkaline Phosphatase 101 U/L (39-117); Aspartate Amino Transferase 61 U/L (5-37); Bilirubin Direct 0.1 mg/dL (0.0-0.5); Bilirubin Total 0.3 mg/dL (0.0-1.0)
[2024-01-23 17:16] LABS: Stroke Lab Use COMPLETE
--- NOTE | 2024-01-23 17:19 | P.HPHOSP_ITS ---
History of Present Illness Date of Service: 01/23/24 <TANA Cartagena - Last Filed: 01/23/24 18:54> Attending physician on admission: Yolanda Anand <TANA Cartagena - Last Filed: 01/23/24 18:54> Chief Complaint: Episodes of confusion <TANA Cartagena - Last Filed: 01/23/24 18:54> Pt is a 58-year-old male with a PMH significant for?DVT (1983), PE (2011), Dewey's esophagitis, gastritis, GERD, hep C (treated 2011), and lactulose intolerance who presents to the ED for evaluation of altered mental status. Patient was out with family and friends eating dinner at a restaurant when suddenly ?the voices were not communicating to me?; he could no longer hear people speaking although he could still see their mouths move. He no longer could recognize where he was and felt the room ?grow smaller? and more ?secluded?. States he was unable to say what he wanted. reports that he was able to speak comprehensibly, but she could tell he did not appear to be himself. Patient apparently was also getting emotional during this time. Episode lasted approximately 50 minutes and resolved in the ED when patient was getting a CT scan of his head. Patient also had 2 additional similar episodes in the ED where he could not recognize where he was and became emotional. Patient denies experiencing similar episodes before and denies any other acute medical complaint. No headache or acute vision changes. No facial droop noted. Denies weakness, difficulty walking, or difficulty grasping items. Denies lightheadedness or dizziness. No chest pain/pressure, palpitations. No fever, chills, nausea, vomiting, abdominal pain. Denies shortness or breath or difficulty breathing. Patient reports he had a few drinks prior to going to the restaurant and while at there. He works nights and states in the mornig when he gets off his shift he drinks 2 beers and 2 shots daily while working, and usually that much if not more on days he does not work. In the ED pt was briefly tachypneic at 23 and hypertensive up to 152/99. Labs were significant for elevated AST of 61 ALT of 67, and triglycerides 615. Ethyl alcohol level of 258. Otherwise grossly unremarkable and around baseline for patient. No leukocytosis. Stable H&H. No significant electrolyte abnormalities. CT?of head showed no acute intracranial pathology. CTA of head and neck showed no vessel occlusion or significant stenosis in major arteries of the neck. Did show incidental note of retropharyngeal course of bilateral proximal internal carotid artery. EKG demonstrated normal sinus rhythm without significant change from prior. Pt was treated with lorazepam 1 mg IV, aspirin, and Keppra 500 mg IV. Pt will be admitted to the hospital under observation for treatment and further evaluation of acute encephalopathy concerning for partial seizure versus TIA/stroke. <TANA Cartagena - Last Filed: 01/23/24 18:54> Review of Systems 2 Review of Systems: Negative except for that which is stated in the HPI. <TANA Cartagena - Last Filed: 01/23/24 18:54> Yes all other systems are reviewed and are negative <TANA Cartagena - Last Filed: 01/23/24 18:54> [facility] Medical History: Medical History (Updated 01/25/24 @ 11:20 by Yolanda Anand MD) Pulmonary embolism DVT (deep venous thrombosis) Forearm fractures, both bones, closed (~08/2011) Acromioclavicular joint arthritis Pulmonary embolism and infarction (~06/2011) Rotator cuff impingement syndrome Chronic hepatitis <TANA Cartagena - Last Filed: 01/23/24 18:54> Surgical History: Surgical History History of esophagogastroduodenoscopy (EGD) Hx of colonoscopy Hx of colonoscopy S/P right rotator cuff repair (~11/2011) History of right inguinal hernia repair <TANA Cartagena - Last Filed: 01/23/24 18:54> Social History: Social History Household Members: Spouse Housing: House Do you presently have visiting nurse or other home services: No Comment: pt rings appropriately Patient Tobacco Use Status: Current everyday Tobacco user Tobacco use type: Cigarette Cigarette Packs Per Day: 0.5 Cigarettes Per Day: 4 Smoked in Last 30 Days: Yes e-Cigarette/Vaping Use: Never Used Patient Interested in Nicotine Replacement: No Second Hand Smoke Exposure: No Use of substances other than those prescribed or required for medical reasons: No Substance Use Type: Marijuana Substance Use Frequency: Occasionally Currently Displaying Signs/Symptoms of Drug Intoxication Withdrawal: No Any prior treatment program specific to substance use: No Have you been hit, kicked, punched, or otherwise hurt by someone within the past year? If so, by whom?: No Do you feel safe in your current relationship?: Yes Is there a partner from a previous relationship who is making you feel unsafe now?: No Are you made to feel afraid or neglected: No Rastafarian Healthcare Practices: None Advance Directives: No Advance Directives Information Provided: Yes Do you have a plan to hurt others: No Plan Recently lost weight without trying: No Nutrition Risks: No Nutritional Risk Poor oral hygiene: No service: No <TANA Cartagena - Last Filed: 01/23/24 18:54> Meds Allergies/Adverse reactions: Allergies Allergy/AdvReac Type Severity Reaction Status Date / Time No Known Allergies Allergy Verified 01/23/24 14:54 <TANA Cartagena - Last Filed: 01/23/24 18:54> Home medications: Home Medications ?Medication ?Instructions ?Recorded ?Confirmed ?Last Taken ?Type omeprazole 20 mg capsule,delayed 20 mg PO DAILY@0630 06/26/21 01/23/24 01/23/24 History release <TANA Cartagena - Last Filed: 01/23/24 18:54> Physical Exam 2 Vital Signs and Narrative: Vital Signs: Last Vital Signs Temp 98.0 F 01/23/24 15:29 Pulse 70 01/23/24 16:46 Resp 136 H 01/23/24 16:46 BP 141/90 H 01/23/24 16:46 Pulse Ox 97 01/23/24 15:29 O2 Del Method Room Air 01/23/24 15:29 BMI result Body Mass Index 27.3 <TANA Cartagena - Last Filed: 01/23/24 18:54> Constitutional: Somnolent but arousable to verbal stimuli. Following commands and answering appropriately. In in no acute distress. Mental Status: Oriented to person, place and time. Eyes: Pupils are equal, round, and reactive to light. Ear, Nose, and Throat: Oropharynx clear, mucous membranes moist. Ears and nose without deformities. Trachea midline. Respiratory: Clear to auscultation bilaterally. No wheezing, rales, or rhonchi. Cardiovascular: S1, S2 regular. No murmurs, rubs, or gallops. Gastrointestinal: Abdomen soft, non-tender, non-distended. Normal bowel sounds. Neurologic: Cranial nerves II-XII are grossly intact bilaterally. No focal neurological deficits. Moves all extremities spontaneously. Sensation to light touch and strength preserved and symmetrical bilaterally. Negative for pronator drift. Skin: Warm, dry. Extremities: No edema. Psychiatric: Normal mood and affect. <TANA Cartagena - Last Filed: 01/23/24 18:54> Const: Other: Constitutional : Awake, interactive, not in distress Neck : Normal inspection, Supple Cardiovascular : RRR, no JVP, no lower extremity edema Respiratory : good bilateral air entry, no crackles, wheezes or rhonchi Gastrointestinal: soft, lax, Normal bowel sounds, Non tender Skin : Warm, Dry Neurological : Alert & oriented x3, No focal deficit , CN 2-12 within normal <Yolanda Anand MD - Last Filed: 01/25/24 11:20> Results Labs CBC and Chem 7: 01/25/24 05:59 01/25/24 05:59 <TANA Cartagena - Last Filed: 01/23/24 18:54> Labs: Laboratory Results - last 24 hr 01/23/24 01/23/24 01/23/24 15:08 15:09 15:58 MCV 91.9 MCH 30.8 MCHC 33.5 RDW 13.6 Plt Count 226 MPV 9.4 Immature Gran % (Auto) 0.1 Neut % (Auto) 40.2 L Lymph % (Auto) 40.4 H [place] % (Auto) 13.0 H Eos % (Auto) 5.2 H Baso % (Auto) 1.1 Lymph # (Auto) 2.9 [place] # (Auto) 0.9 Eos # (Auto) 0.4 Baso # (Auto) 0.1 Abs Immat Gran (auto) 0.01 Absolute Neuts (auto) 2.9 Absolute Nucleated RBC 0.000 Nucleated RBC % (auto) 0.0 PT 11.8 Whole Blood PT 14.1 H INR 1.0 Whole Blood INR 1.2 H APTT 29.9 Anion Gap 16 Estim Creat Clear Calc 85.3 Estimated GFR > 60 POC Glucose 127 H Random Glucose 94 Calcium 8.8 D Total Bilirubin 0.3 Direct Bilirubin 0.1 AST 61 H ALT 67 H Alkaline Phosphatase 101 Troponin I High Sens 4.1 Total Protein 7.0 Albumin 4.0 Triglycerides 615 H Cholesterol 189 LDL Cholesterol, Calc TNP HDL Cholesterol 48 Urine Opiates Screen Ur Buprenorphine Scrn Ur Oxycodone Screen Urine Methadone Screen Urine Fentanyl Screen Ur Barbiturates Screen Ur Phencyclidine Scrn Ur Amphetamines Screen U Benzodiazepines Scrn Urine Cocaine Screen U Marijuana (THC) Screen Ethyl Alcohol 258 01/23/24 16:03 MCV MCH MCHC RDW Plt Count MPV Immature Gran % (Auto) Neut % (Auto) Lymph % (Auto) [place] % (Auto) Eos % (Auto) Baso % (Auto) Lymph # (Auto) [place] # (Auto) Eos # (Auto) Baso # (Auto) Abs Immat Gran (auto) Absolute Neuts (auto) Absolute Nucleated RBC Nucleated RBC % (auto) PT Whole Blood PT INR Whole Blood INR APTT Anion Gap Estim Creat Clear Calc Estimated GFR POC Glucose Random Glucose Calcium Total Bilirubin Direct Bilirubin AST ALT Alkaline Phosphatase Troponin I High Sens Total Protein Albumin Triglycerides Cholesterol LDL Cholesterol, Calc HDL Cholesterol Urine Opiates Screen Not Detected Ur Buprenorphine Scrn Not Detected Ur Oxycodone Screen Not Detected Urine Methadone Screen Not Detected Urine Fentanyl Screen Not Detected Ur Barbiturates Screen Not Detected Ur Phencyclidine Scrn Not Detected Ur Amphetamines Screen Not Detected U Benzodiazepines Scrn Not Detected Urine Cocaine Screen Not Detected U Marijuana (THC) Screen Not Detected Ethyl Alcohol <TANA Cartagena - Last Filed: 01/23/24 18:54> Imaging Radiologist's Impressions: Impressions Head CT 01/23/24 15:02 IMPRESSION: No acute intracranial pathology. This critical result was discussed with at 15:14 EST hours on 01/23/24. It was ascertained that the content and urgency of the report was understood at the time of direct communication. Electronically signed by: Chaparrita Khan MD 01/23/2024 03:14 PM EST Head/Neck CTA 01/23/24 15:09 IMPRESSION: 1. No large vessel occlusion. 2. No significant stenosis in the major arteries of the neck. 3. Incidental note of retropharyngeal course of the bilateral proximal internal carotid arteries. Electronically signed by: Chaparrita Khan MD 01/23/2024 03:34 PM EST <TANA Cartagena - Last Filed: 01/23/24 18:54> Assessment and Plan (1) Altered mental status: Status: Acute <TANA Cartagena - Last Filed: 01/23/24 18:54> (2) Alcohol use disorder: Status: Acute <TANA Cartagena Last Filed: 01/23/24 18:54> (3) Uncontrolled hypertension: Status: Acute <TANA Cartagena Last Filed: 01/23/24 18:54> (4) Complex partial seizure: Status: Acute <TANA Cartagena Last Filed: 01/23/24 18:54> Pt is a 58-year-old male with a PMH significant for?DVT (1983), PE (2011), Dewey's esophagitis, gastritis, GERD, hep C (treated 2011), and lactulose intolerance who presents to the ED for evaluation of altered mental status. Pt will be admitted to the hospital under observation for treatment and further evaluation of acute encephalopathy concerning for partial seizure versus TIA/stroke. Acute encephalopathy Pt with 3 episodes of confusion, disorientation, perception disturbances today Symptoms have since resolved CT of head and CTA of head/neck negative for acute findings Concerning for partial seizure vs TIA/stroke Pt given aspirin, Ativan 1mg IV, and Keppra 500 mg IV in the ED Will hold on additional medication pending neurology input Will get MRI of head/brain Will get EEG Neurology consult PT/OT therapy Monitor on telemetry Alcohol dependence Reports drinking 2 beers and 2 shots daily when works, likely more on other days Ethyl level 258 at time of presentation, possibly contributory to presentation Monitor on [facility] Addiction medicine consult GERD PPI Full Code Attending:?Dr. Anand DVT Prophylaxis: Lovenox Patient will be admitted to the hospital under observation for acute encephalopathy with perception disturbances concerning for partial seizure versus TIA/stroke. Patient will require hospital level care for cardiac monitoring, as well as additional imaging and specialist consultation with Neurology. <TANA Cartagena Last Filed: 01/23/24 18:54> Quality Stroke Does the patient have a stroke diagnosis?: No <TANA Cartagena - Last Filed: 01/23/24 18:54> Reason for No Anti-thrombotic by Day Two: Contraindicated (AMS/symptoms have resolved) <TANA Cartagena - Last Filed: 01/23/24 18:54> VTE Prior VTE?: Yes <TANA Cartagena - Last Filed: 01/23/24 18:54> Approximate Date of Prior VTE: 08/21/83 <TANA Cartagena - Last Filed: 01/23/24 18:54> VTE Risk Level:: Medical - moderate - high <TANA Cartagena - Last Filed: 01/23/24 18:54> VTE Device Contraindication: Treatment Not Indicated <TANA Cartagena - Last Filed: 01/23/24 18:54> VTE Drug Contraindication: N/A - Med Ordered <TANA Cartagena - Last Filed: 01/23/24 18:54>
--- NOTE | 2024-01-23 17:23 | PC.NURSE ---
Pt medicated per MAR. Pt is currently resting comfortably with eye closed. NAD noted.
--- NOTE | 2024-01-23 17:34 | PHA.MEDREC ---
Addendum entered by Fadumo Cedeno RPh 01/23/24 17:38: [facility] REVIEWED Original Note: Pharmacy Consult ? Medication Reconciliation Pharmacy has completed the medication reconciliation. Spoke to pt to confirm meds.
[2024-01-23 20:31] VITALS: BP 101/70; PULSE 64; RESP 15; O2SAT 97
[2024-01-23] MEDS: Enoxaparin Sodium 40 MG/0.4 ML SYRINGE SUBCUT (23:07)
[2024-01-24] VITALS (7 sets, daily range): BP systolic 121–168; BP diastolic 79–97; PULSE 58–84; RESP 17–21; TEMP 36.5–37.2; O2SAT 93–100; BMI 27.5
--- NOTE | 2024-01-24 | EEG_ITS ---
This is a 16-channel EEG with an EKG lead. The patient is reported awake during the tracing. Background EEG rhythm is low amplitude fast with rare right hemispheric sharply contoured theta range discharge. Cardiac lead did not reveal any abnormality. Photic stimulation was unremarkable. Hyperventilation was not performed. IMPRESSION: Mildly abnormal EEG suggestive of left hemispheric irritability. MD MELANIE Alberto/KAT / [id number]
[2024-01-24] MEDS: Melatonin 3 MG TABLET 6 MG PO ×2 (00:50→20:58)
[2024-01-24] MEDS: 0.9 % Sodium Chloride Flush 3 ML SYRINGE IVFLUSH ×3 (00:54→16:16)
[2024-01-24] MEDS: Omeprazole 20 MG CAPSULE.DR PO (06:18)
--- NOTE | 2024-01-24 09:31 | PM.NEUROCN ---
History of Present Illness Data of Consult Service Date: 01/24/24 Primary Care Provider: Carlos Thompson MD [facility] Reason for consult: Episodes of confusion 58 years old man who probably has been drinking alcohol for a while was with family yesterday when he had sudden change in mental status. Apparently he could hear people but could not communicate well. There was no associated twitches or convulsion. The symptoms lasted for few minutes and were resolved when he came to emergency room. There was no headache or previous history of migraine headaches. He has not taking any new medicine. His alcohol level was high in emergency room. While he was here, he had another similar episode lasting for few minutes. Review of Systems Review of Systems: Active alcohol drinking [facility] Past Medical History Medical History (Updated 01/24/24 @ 09:33 by Clive Griggs MD) Pulmonary embolism DVT (deep venous thrombosis) Forearm fractures, both bones, closed (~08/2011) Acromioclavicular joint arthritis Pulmonary embolism and infarction (~06/2011) Rotator cuff impingement syndrome Chronic hepatitis Surgical History Surgical History History of esophagogastroduodenoscopy (EGD) Hx of colonoscopy Hx of colonoscopy S/P right rotator cuff repair (~11/2011) History of right inguinal hernia repair Social History Social History Household Members: Spouse Housing: House Do you presently have visiting nurse or other home services: No Patient Tobacco Use Status: Current everyday Tobacco user Tobacco use type: Cigarette Cigarette Packs Per Day: 0.5 Cigarettes Per Day: 4 Smoked in Last 30 Days: Yes e-Cigarette/Vaping Use: Never Used Patient Interested in Nicotine Replacement: No Second Hand Smoke Exposure: No Use of substances other than those prescribed or required for medical reasons: No Substance Use Type: Marijuana Substance Use Frequency: Occasionally Currently Displaying Signs/Symptoms of Drug Intoxication Withdrawal: No Any prior treatment program specific to substance use: No Have you been hit, kicked, punched, or otherwise hurt by someone within the past year? If so, by whom?: No Do you feel safe in your current relationship?: Yes Is there a partner from a previous relationship who is making you feel unsafe now?: No Are you made to feel afraid or neglected: No Islam Healthcare Practices: None Advance Directives: No Advance Directives Information Provided: Yes Do you have a plan to hurt others: No Plan Recently lost weight without trying: No Nutrition Risks: No Nutritional Risk Poor oral hygiene: No Meds Allergies Allergy/AdvReac Type Severity Reaction Status Date / Time No Known Allergies Allergy Verified 01/23/24 14:54 Active Medications: Current Medications Acetaminophen (Acetaminophen 325 Mg Tablet) 650 mg PO Q6H PRN PRN Reason: Pain, Mild (Pain Scale 1-3), fever or headache Benzonatate (Benzonatate 100 Mg Capsule) 100 mg PO TID PRN PRN Reason: Cough Calcium Carbonate (Calcium Carbonate 750 Mg Tab.Chew) 750 mg PO Q4H PRN PRN Reason: Heartburn Enoxaparin Sodium (Enoxaparin Sodium 40 Mg/0.4 Ml Syringe) 40 mg SUBCUT Q24H COUNTS INCLUDE 234 BEDS AT THE [facility] Last Admin: 01/23/24 23:07 Dose: 40 mg Lorazepam (Lorazepam 2 Mg/Ml Vial) 2 mg IVPUSH ONCE PRN PRN Reason: Seizures Magnesium Hydroxide (Milk Of Magnesia 30 Ml Oral.Susp) 30 ml PO DAILY PRN PRN Reason: Constipation Melatonin (Melatonin 3 Mg Tablet) 6 mg PO BEDTIME PRN PRN Reason: Insomnia Last Admin: 01/24/24 00:50 Dose: 6 mg Nicotine (Nicotine 14 Mg Patch.Td24) 14 mg TRANSDERMA DAILY PRN PRN Reason: Nicotine Cravings Omeprazole (Omeprazole 20 Mg Capsule.) 20 mg PO DAILY@0630 COUNTS INCLUDE 234 BEDS AT THE [facility] Last Admin: 01/24/24 06:18 Dose: 20 mg Ondansetron HCl (Ondansetron Hcl 4 Mg/2 Ml Vial) 4 mg IVPUSH Q8H PRN PRN Reason: Nausea and Vomiting Sodium Chloride (0.9 % Sodium Chloride Flush 3 Ml Syringe) 3 ml IVFLUSH QSHIFT COUNTS INCLUDE 234 BEDS AT THE [facility] Last Admin: 01/24/24 08:30 Dose: 3 ml Home Medications ?Medication ?Instructions ?Recorded ?Confirmed ?Last Taken ?Type omeprazole 20 mg capsule,delayed 20 mg PO DAILY@0630 06/26/21 01/23/24 01/23/24 History release Physical Exam Vital Signs: Vital Signs: Last Vital Signs Temp 99.0 F 01/24/24 07:47 Pulse 61 01/24/24 07:47 Resp 20 01/24/24 07:47 BP 164/96 H 01/24/24 07:47 Pulse Ox 96 01/24/24 07:47 O2 Del Method Room Air 01/24/24 07:47 BMI result Body Mass Index 27.5 Neuro: Other: He is alert and awake with normal spontaneity of speech fluency comprehension and anxious affect. Face is symmetrical. Visual sepulveda are full. [id number] testing revealed mild ataxia. Plantars are flexor. Deep tendon reflexes are absent. Speech is normal. Results Labs 01/23/24 15:58 01/23/24 15:58 Labs: Short CBC 01/23/24 Range/Units 15:58 WBC 7.2 (4.8-10.8) X10*3/uL Hgb 14.0 (14.0-18.0) g/dl Hct 41.8 L (42.0-52.0) % Plt Count 226 (160-400) X10*3/uL BMP 01/23/24 15:58 Sodium 141 Potassium 3.7 Chloride 111 H Carbon Dioxide 18 L BUN 16 Creatinine 0.92 Calcium 8.8 D Liver Function 01/23/24 Range/Units 15:58 Total Bilirubin 0.3 (0.0-1.0) mg/dL Direct Bilirubin 0.1 (0.0-0.5) mg/dL AST 61 H (5-37) U/L ALT 67 H (0-40) U/L Alkaline Phosphatase 101 (39-117) U/L Albumin 4.0 (3.5-5.0) g/dL Head CT revealed mild cerebellar atrophy. CTA did not reveal any vascular lesion. EKG was okay. Assessment and Plan (1) Altered mental status: Qualifiers: Altered mental status type: transient alteration of awareness Qualified Code(s): R40.4 - Transient alteration of awareness Status: Acute 58 years old man with alcohol abuse and couple of episodes of symptoms suggestive of complex partial seizure disorder. He was educated about this diagnosis and its potential implications and testing. At this time my recommendation is to obtain an EEG and a noncontrast MRI of brain. He was strongly advised to stop drinking alcohol. He was not inclined to take any seizure medicine or a medicine that he has to take for long time. If his initial EEG is negative, I recommend outpatient long-term EEG monitoring. Otherwise, he should avoid driving or activities that could put his life in danger in case he had another episode. Procedures Date of Service Date of Service: 01/24/24
--- NOTE | 2024-01-24 11:09 | MHC.RECOVRN ---
AUDIT-C Brief Intervention Pt had positive screen for unhealthy alcohol use on admission. Attempted to meet with pt to discuss alcohol use and offer resources, pt declined.
--- NOTE | 2024-01-24 13:31 | MHC.CM.PN ---
My 01/24/24, Pt. lives with his , he is independent, no home health services or DME. PCP confirmed: Dr. Thompson, HCP form to be completed here and added to chart. to transport home at DC. DCP: home, self care, CM to follow for DC needs.
--- NOTE | 2024-01-24 13:55 | P.PNIM_ITS ---
Subjective Subjective Date of Service: 01/24/24 Interval History: Seen and evaluated this morning feels better denies any further episodes pending MRI and EEG readings Review of Systems Review of Systems: Yes all other systems are reviewed and are negative Physical Exam 2 Vital Signs: Vital Signs: Last Vital Signs Temp 98.4 F 01/24/24 11:57 Pulse 60 01/24/24 11:57 Resp 18 01/24/24 11:57 BP 162/96 H 01/24/24 11:57 Pulse Ox 96 01/24/24 11:57 O2 Del Method Room Air 01/24/24 11:57 BMI result Body Mass Index 27.5 Const: Other: Constitutional : Awake, interactive, not in distress Neck : Normal inspection, Supple Cardiovascular : RRR, no JVP, no lower extremity edema Respiratory : good bilateral air entry, no crackles, wheezes or rhonchi Gastrointestinal: soft, lax, Normal bowel sounds, Non tender Skin : Warm, Dry Neurological : Alert & oriented x3, No focal deficit Objective Data Active Medications Acetaminophen (Acetaminophen 325 Mg Tablet) 650 mg PO Q6H PRN PRN Reason: Pain, Mild (Pain Scale 1-3), fever or headache Amlodipine Besylate (Amlodipine Besylate 2.5 Mg Tablet) 2.5 mg PO DAILY [facility]; Protocol Benzonatate (Benzonatate 100 Mg Capsule) 100 mg PO TID PRN PRN Reason: Cough Calcium Carbonate (Calcium Carbonate 750 Mg Tab.Chew) 750 mg PO Q4H PRN PRN Reason: Heartburn Enoxaparin Sodium (Enoxaparin Sodium 40 Mg/0.4 Ml Syringe) 40 mg SUBCUT Q24H [facility] Last Admin: 01/23/24 23:07 Dose: 40 mg Documented By: THERESA Lorazepam (Lorazepam 2 Mg/Ml Vial) 2 mg IVPUSH ONCE PRN PRN Reason: Seizures Magnesium Hydroxide (Milk Of Magnesia 30 Ml Oral.Susp) 30 ml PO DAILY PRN PRN Reason: Constipation Melatonin (Melatonin 3 Mg Tablet) 6 mg PO BEDTIME PRN PRN Reason: Insomnia Last Admin: 01/24/24 00:50 Dose: 6 mg Documented By: THERESA Nicotine (Nicotine 14 Mg Patch.Td24) 14 mg TRANSDERMA DAILY PRN PRN Reason: Nicotine Cravings Omeprazole (Omeprazole 20 Mg Capsule.Dr) 20 mg PO DAILY@0630 [facility] Last Admin: 01/24/24 06:18 Dose: 20 mg Documented By: JEFFREY Ondansetron HCl (Ondansetron Hcl 4 Mg/2 Ml Vial) 4 mg IVPUSH Q8H PRN PRN Reason: Nausea and Vomiting Sodium Chloride (0.9 % Sodium Chloride Flush 3 Ml Syringe) 3 ml IVFLUSH QSHIFT [facility] Last Admin: 01/24/24 08:30 Dose: 3 ml Documented By: SAMIR Labs 01/23/24 15:58 01/23/24 15:58 Labs: Laboratory Results - last 24 hr 01/23/24 01/23/24 01/23/24 15:08 15:09 15:58 MCV 91.9 MCH 30.8 MCHC 33.5 RDW 13.6 Plt Count 226 MPV 9.4 Immature Gran % (Auto) 0.1 Neut % (Auto) 40.2 L Lymph % (Auto) 40.4 H Stewart % (Auto) 13.0 H Eos % (Auto) 5.2 H Baso % (Auto) 1.1 Lymph # (Auto) 2.9 Stewart # (Auto) 0.9 Eos # (Auto) 0.4 Baso # (Auto) 0.1 Abs Immat Gran (auto) 0.01 Absolute Neuts (auto) 2.9 Absolute Nucleated RBC 0.000 Nucleated RBC % (auto) 0.0 PT 11.8 Whole Blood PT 14.1 H INR 1.0 Whole Blood INR 1.2 H APTT 29.9 Anion Gap 16 Estim Creat Clear Calc 85.3 Estimated GFR > 60 POC Glucose 127 H Random Glucose 94 Calcium 8.8 D Total Bilirubin 0.3 Direct Bilirubin 0.1 AST 61 H ALT 67 H Alkaline Phosphatase 101 Troponin I High Sens 4.1 Total Protein 7.0 Albumin 4.0 Triglycerides 615 H Cholesterol 189 LDL Cholesterol, Calc TNP HDL Cholesterol 48 Urine Opiates Screen Ur Buprenorphine Scrn Ur Oxycodone Screen Urine Methadone Screen Urine Fentanyl Screen Ur Barbiturates Screen Ur Phencyclidine Scrn Ur Amphetamines Screen U Benzodiazepines Scrn Urine Cocaine Screen U Marijuana (THC) Screen Ethyl Alcohol 258 01/23/24 16:03 MCV MCH MCHC RDW Plt Count MPV Immature Gran % (Auto) Neut % (Auto) Lymph % (Auto) Stewart % (Auto) Eos % (Auto) Baso % (Auto) Lymph # (Auto) Stewart # (Auto) Eos # (Auto) Baso # (Auto) Abs Immat Gran (auto) Absolute Neuts (auto) Absolute Nucleated RBC Nucleated RBC % (auto) PT Whole Blood PT INR Whole Blood INR APTT Anion Gap Estim Creat Clear Calc Estimated GFR POC Glucose Random Glucose Calcium Total Bilirubin Direct Bilirubin AST ALT Alkaline Phosphatase Troponin I High Sens Total Protein Albumin Triglycerides Cholesterol LDL Cholesterol, Calc HDL Cholesterol Urine Opiates Screen Not Detected Ur Buprenorphine Scrn Not Detected Ur Oxycodone Screen Not Detected Urine Methadone Screen Not Detected Urine Fentanyl Screen Not Detected Ur Barbiturates Screen Not Detected Ur Phencyclidine Scrn Not Detected Ur Amphetamines Screen Not Detected U Benzodiazepines Scrn Not Detected Urine Cocaine Screen Not Detected U Marijuana (THC) Screen Not Detected Ethyl Alcohol Assessment and Plan (1) Altered mental status: Status: Acute (2) Alcohol use disorder: Status: Acute Plan Pt is a 58-year-old male with a PMH significant for?DVT (1983), PE (2011), Dewey's esophagitis, gastritis, GERD, hep C (treated 2011), and lactulose intolerance who presents to the ED for evaluation of altered mental status. Pt will be admitted to the hospital under observation for treatment and further evaluation of acute encephalopathy concerning for partial seizure versus TIA/stroke. Altered mentation 2/2 complex partial seizure disorder no further epsisodes overnight CT of head and CTA of head/neck negative for acute findings Will hold on additional medication MRI of head/brain and EEG pending Neurology input appreciated, likely CPS, stop drinking alcohol, no need for seizure medications. Long OP EEG, avoid driving or dangerous activities. PT/OT therapy Monitor on telemetry Alcohol dependence Monitor on [facility] Addiction medicine consult GERD PPI Full Code DVT Prophylaxis: Lovenox Patient will be admitted to the hospital under observation for acute encephalopathy with perception disturbances concerning for partial seizure versus TIA/stroke. Patient will require hospital level care for cardiac monitoring, as well as additional imaging and specialist consultation with Neurology. Quality Stroke Does the patient have a stroke diagnosis?: No Reason for No Anti-thrombotic by Day Two: Contraindicated (AMS/symptoms have resolved) VTE Prior VTE?: Yes Approximate Date of Prior VTE: 08/21/83 VTE Risk Level:: Medical - moderate - high VTE Device Contraindication: Treatment Not Indicated VTE Drug Contraindication: N/A - Med Ordered
[2024-01-24] MEDS: amLODIPine Besylate 2.5 MG TABLET PO (16:15)
[2024-01-24] MEDS: Enoxaparin Sodium 40 MG/0.4 ML SYRINGE SUBCUT (20:56)
[2024-01-25] VITALS: BP 142/90; PULSE 56; RESP 14; TEMP 36.6; O2SAT 97
[2024-01-25] MEDS: 0.9 % Sodium Chloride Flush 3 ML SYRINGE IVFLUSH ×2 (00:19→07:39)
[2024-01-25 04:00] VITALS: BP 152/98; PULSE 57; RESP 16; TEMP 36.7; O2SAT 97
[2024-01-25 06:28] LABS: Hematocrit 42.8 % (42.0-52.0); Hemoglobin 14.6 g/dl (14.0-18.0); Mean Corpuscular HGB Conc 34.1 g/dl (31.0-36.0); Mean Corpuscular Hemoglobin 30.9 pg (27.0-33.0); Mean Corpuscular Volume 90.5 fL (80.0-98.0); Mean Platelet Volume 9.8 fL (9.4-12.4); Platelet Count 207 X10*3/uL (160-400); Red Blood Count 4.73 X10*6/uL (4.60-5.80); White Blood Count 5.2 X10*3/uL (4.8-10.8)
[2024-01-25] MEDS: Omeprazole 20 MG CAPSULE.DR PO (06:43)
[2024-01-25 06:45] LABS: Anion Gap 12 (12-20); Blood Urea Nitrogen 10 mg/dL (9-16); Calcium 8.9 mg/dL (8.4-10.2); Carbon Dioxide 20 mmol/L (22-29); Chloride 108 mmol/L (96-108); Creatinine Clr Calc Pharmacy 93.5; Estimated Glomerular Filt Rate > 60; Glucose Random 105 mg/dL (60-115); Potassium 3.9 mmol/L (3.3-5.1); Sodium 136 mmol/L (135-145)
[2024-01-25 07:15] VITALS: BP 160/88; PULSE 56; RESP 16; TEMP 36.9; O2SAT 97
[2024-01-25] MEDS: amLODIPine Besylate 2.5 MG TABLET PO (07:39)
[2024-01-25] MEDS: levETIRAcetam 500 MG TABLET PO (10:12)
[2024-01-25 11:04] VITALS: BP 138/78; PULSE 68; RESP 16; TEMP 37; O2SAT 96
--- NOTE | 2024-01-25 11:14 | PM.DS ---
DS: Providers Provider Date of Service: 01/25/24 Date of admission: 01/23/24 18:08 Date of discharge: 01/25/24 Primary care physician: Carlos Thompson MD Consults: 01/23/24 18:13 Consult to Neurology Routine Consulting Provider: [facility] Reason for consultation: AMS, ?partial seizure vs TIA/CVA 01/23/24 18:22 Addiction Medicine Routine Consulting Provider: Addiction Covering Reason for consultation: Alcohol dependence DS: Diagnosis Discharge Diagnosis (1) Altered mental status: Status: Acute (2) Alcohol use disorder: Status: Acute (3) Uncontrolled hypertension: Status: Acute (4) Complex partial seizure: Status: Acute DS: Summary Hospital Course Hospital Course: Admission note HPI Pt is a 58-year-old male with a PMH significant for?DVT (1983), PE (2011), Dewey's esophagitis, gastritis, GERD, hep C (treated 2011), and lactulose intolerance who presents to the ED for evaluation of altered mental status. Patient was out with family and friends eating dinner at a restaurant when suddenly ?the voices were not communicating to me?; he could no longer hear people speaking although he could still see their mouths move. He no longer could recognize where he was and felt the room ?grow smaller? and more ?secluded?. States he was unable to say what he wanted. reports that he was able to speak comprehensibly, but she could tell he did not appear to be himself. Patient apparently was also getting emotional during this time. Episode lasted approximately 50 minutes and resolved in the ED when patient was getting a CT scan of his head. Patient also had 2 additional similar episodes in the ED where he could not recognize where he was and became emotional. Patient denies experiencing similar episodes before and denies any other acute medical complaint. No headache or acute vision changes. No facial droop noted. Denies weakness, difficulty walking, or difficulty grasping items. Denies lightheadedness or dizziness. No chest pain/pressure, palpitations. No fever, chills, nausea, vomiting, abdominal pain. Denies shortness or breath or difficulty breathing. Patient reports he had a few drinks prior to going to the restaurant and while at there. He works nights and states in the mornig when he gets off his shift he drinks 2 beers and 2 shots daily while working, and usually that much if not more on days he does not work. In the ED pt was briefly tachypneic at 23 and hypertensive up to 152/99. Labs were significant for elevated AST of 61 ALT of 67, and triglycerides 615. Ethyl alcohol level of 258. Otherwise grossly unremarkable and around baseline for patient. No leukocytosis. Stable H&H. No significant electrolyte abnormalities. CT?of head showed no acute intracranial pathology. CTA of head and neck showed no vessel occlusion or significant stenosis in major arteries of the neck. Did show incidental note of retropharyngeal course of bilateral proximal internal carotid artery. EKG demonstrated normal sinus rhythm without significant change from prior. Pt was treated with lorazepam 1 mg IV, aspirin, and Keppra 500 mg IV. Pt will be admitted to the hospital under observation for treatment and further evaluation of acute encephalopathy concerning for partial seizure versus TIA/stroke. Hospital course # Altered mentation episodes secondary to likely complex partial seizure disorder as CT of head and CTA of head/neck negative for acute findings. MRI of brain was also negative for stroke or masses. Received a dose of Ativan and Keppra in ED with no recurrence of the reported incidents again. Had an EEG showing abnormal waves in left hemisphere. Evaluated by Neurology who recommended stop drinking alcohol, and need for seizure medications of Keppra 500 mg bid. He was advised avoid driving or dangerous activities for 6 months. # Alcohol dependence, Monitored on [facility]. He declined Addiction medicine consult. Advised total abstinence from Alcohol. # Uncontrolled hypertension. Started on low dose Amlodipine with fair response. advised to monitor at home and follow with PCP for further adjustments of his medications. Discharge plan Start Keppra 500 mg twice a day We advise you complete abstinente from Alcohol Start Amlodipine for high blood pressure and monitor your BP at home. report 1 week readings to PCP for further adjustments. Follow with Dr Griggs as an outpatient in 1-2 months According to [place] law you are not supposed to be driving for 6 months after this incident Time Attestation Discharge Coordination Time (in mins): 43 Quality: Safe Use of Opioids Does Pt have an Active Cancer Diagnosis on the Problem List?: No Quality: Stroke Does the patient have a stroke diagnosis?: No Physical Exam Vital Signs: Vital Signs: Last Vital Signs Temp 98.6 F 01/25/24 11:04 Pulse 68 01/25/24 11:04 Resp 16 01/25/24 11:04 BP 138/78 01/25/24 11:04 Pulse Ox 96 01/25/24 11:04 O2 Del Method Room Air 01/25/24 11:04 BMI result Body Mass Index 27.5 Const: Other: Constitutional : Awake, interactive, not in distress Neck : Normal inspection, Supple Cardiovascular : RRR, no JVP, no lower extremity edema Respiratory : good bilateral air entry, no crackles, wheezes or rhonchi Gastrointestinal: soft, lax, Normal bowel sounds, Non tender Skin : Warm, Dry Neurological : Alert & oriented x3, No focal deficit , CN 2-12 within normal DS: Data Data Completed and Pending Labs on day of discharge: Laboratory Results - last 24 hr 01/25/24 05:59 WBC 5.2 RBC 4.73 Hgb 14.6 Hct 42.8 MCV 90.5 MCH 30.9 MCHC 34.1 RDW 13.0 Plt Count 207 MPV 9.8 Absolute Nucleated RBC 0.000 Nucleated RBC % (auto) 0.0 Sodium 136 Potassium 3.9 Chloride 108 Carbon Dioxide 20 L Anion Gap 12 BUN 10 Creatinine 0.84 Estim Creat Clear Calc 93.5 Estimated GFR > 60 Random Glucose 105 Calcium 8.9 Imaging MRI - head: Radiologist's impression: ITS Impressions Head CT 01/23/24 15:02 IMPRESSION: No acute intracranial pathology. This critical result was discussed with at 15:14 EST hours on 01/23/24. It was ascertained that the content and urgency of the report was understood at the time of direct communication. Electronically signed by: Chaparrita Khan MD 01/23/2024 03:14 PM EST RP Head/Neck CTA 01/23/24 15:09 IMPRESSION: 1. No large vessel occlusion. 2. No significant stenosis in the major arteries of the neck. 3. Incidental note of retropharyngeal course of the bilateral proximal internal carotid arteries. Electronically signed by: Chaparrita Khan MD 01/23/2024 03:34 PM EST RP Brain MRI 01/24/24 08:00 IMPRESSION: No acute stroke/nonhemorrhagic ischemia. No acute intracranial hemorrhage. Electronically signed by: Abdi Espinoza MD 01/25/2024 07:56 AM [facility] Discharge Plan Discharge Anticipated Discharge Date/Time: 01/25/24 11:09 Patient Disposition: Home, Self-Care Discharge Diagnosis: Complex partial seizure Referrals: Carlos Thompson MD [Primary Care Provider] - 1 Week Discharge Medications: New levetiracetam 500 mg Tablet 500 mg PO BID Qty: 180 0RF amlodipine 2.5 mg Tablet 2.5 mg PO DAILY Qty: 90 0RF Protocol: Hold for SBP< HOLD for SBP < : 90 Continued omeprazole 20 mg capsule,delayed release(DR/EC) 20 mg PO DAILY@0630 Discharge Orders: Discharge Order (Routine); Ordered 01/25/24 Ordered By: Yolanda Anand Diet: Advance to usual diet Activity on Discharge: As tolerated Stand Alone Forms: Patient Portal Discharge page Print Language: Tajik Care Plan Goals: Start Keppra 500 mg twice a day We advise you complete abstinente from Alcohol Start Amlodipine for high blood pressure and monitor your BP at home. report 1 week readings to PCP for further adjustments. Follow with Dr Griggs as an outpatient in 1-2 months According to [place] law you are not supposed to be driving for 6 months after this incident Health Concerns: Complex partial seizure Plan of Treatment: KEppra Neurology follow up Assessment: as above Patient Instructions: Levetiracetam (By mouth)
--- NOTE | 2024-01-25 11:24 | MHC.CM.PN ---
Pt has been medically cleared for DC, he will go home via private transfer, plan is self care.
== END 2024-01-25 12:32 | disposition home or self-care (01) ==
LOC: HO.ED 16:41 → HO.EDOVER 18:36 → HO.IMC 01-24 01:28
PROVIDERS: Physician Assistant Medical; Admitting Provider Student in an Organized Health Care Education/Training Program; Emergency Provider Emergency Medicine Emergency Medical Services; PCP Internal Medicine; Visit Provider Student in an Organized Health Care Education/Training Program
DX: G40.209 Localization-related (focal) (partial) symptomatic epilepsy and epileptic syndromes with complex partial seizures, not intractable, without status epilepticus (principal); R41.82 Altered mental status, unspecified; F10.90 Alcohol use, unspecified, uncomplicated; I10 Essential (primary) hypertension; K21.9 Gastro-esophageal reflux disease without esophagitis; R29.700 NIHSS score 0; K22.70 Barrett's esophagus without dysplasia; Z86.19 Personal history of other infectious and parasitic diseases; Z86.718 Personal history of other venous thrombosis and embolism
CPT/HCPCS: 36415; 70450; 70496; 70498; 70551; 80048; 80061; 80076; 80307; 82947; 84484; 85025; 85027; 85610; 85730; 93005; 95816; 96372; 96374; 96375; 97161; 97165; 99222; 99285; J1650; J1953; J2060; Q9967

== ENCOUNTER → 2024-01-23 14:57 | Outpatient (BNV) | payer BC, SELFPAY | PROVIDERS: Admitting Provider Student in an Organized Health Care Education/Training Program; Emergency Provider Emergency Medicine Emergency Medical Services; PCP Internal Medicine; Visit Provider Internal Medicine Cardiovascular Disease | DX: R41.82 Altered mental status, unspecified (principal) | CPT/HCPCS: 93010 ==

== ENCOUNTER 2024-01-23 18:08 | Outpatient (BNV) | payer BC, SELFPAY | END 2024-01-24 08:00 | PROVIDERS: Admitting Provider Student in an Organized Health Care Education/Training Program; Emergency Provider Emergency Medicine Emergency Medical Services; PCP Internal Medicine; Visit Provider Radiology Diagnostic Radiology | DX: R41.82 Altered mental status, unspecified (principal) | CPT/HCPCS: 70551 ==

== ENCOUNTER → 2024-01-23 18:08 | Outpatient (BNV) | payer BC, SELFPAY | PROVIDERS: Admitting Provider Student in an Organized Health Care Education/Training Program; Emergency Provider Emergency Medicine Emergency Medical Services; PCP Internal Medicine; Visit Provider Student in an Organized Health Care Education/Training Program | DX: R40.4 Transient alteration of awareness (principal); F10.90 Alcohol use, unspecified, uncomplicated; G40.209 Localization-related (focal) (partial) symptomatic epilepsy and epileptic syndromes with complex partial seizures, not intractable, without status epilepticus; I10 Essential (primary) hypertension | CPT/HCPCS: 99222; 99232; 99239 ==

== ENCOUNTER → 2024-01-23 18:08 | Outpatient (BNV) | payer BC, SELFPAY | PROVIDERS: Admitting Provider Student in an Organized Health Care Education/Training Program; Emergency Provider Emergency Medicine Emergency Medical Services; PCP Internal Medicine; Visit Provider Psychiatry & Neurology Neurology | DX: R40.4 Transient alteration of awareness (principal) | CPT/HCPCS: 99222 ==

== ENCOUNTER 2024-02-16 07:41 | Outpatient (REF) | payer BC, SELFPAY ==
[2024-02-16 07:56] LABS: MANUAL DIFF FLAG NO
[2024-02-16 09:06] LABS: Basophils Absolute Auto 0.1 X10*3/uL (0.0-0.2); Basophils Percent Auto 0.8 % (0-2); Eosinophils Absolute Auto 0.3 X10*3/uL (0.0-0.4); Eosinophils Percent Auto 4.2 % (0-4); Hematocrit 47.1 % (42.0-52.0); Hemoglobin 15.3 g/dl (14.0-18.0); Imm Gran Abs Auto 0.01 X10*3/uL (0.00-0.03); Imm Gran Pct Auto 0.1 % (0.0-0.4); Lymphocytes Percent Auto 27.7 % (20-40); Mean Corpuscular HGB Conc 32.5 g/dl (31.0-36.0); Mean Corpuscular Volume 92.4 fL (80.0-98.0); Mean Platelet Volume 10.5 fL (9.4-12.4); Monocytes Absolute Auto 0.9 X10*3/uL (0.1-1.2); Monocytes Percent Auto 12.4 % (2-11); Neutrophils Absolute Auto 3.9 x10*3/uL (2.0-8.3); Neutrophils Percent Auto 54.8 % (45-73); Platelet Count 322 X10*3/uL (160-400); Red Cell Distribution Width 12.8 % (11.0-16.0); White Blood Count 7.2 X10*3/uL (4.8-10.8)
[2024-02-16 09:47] LABS: Alanine Aminotransferase 32 U/L (0-40); Albumin Level 4.2 g/dL (3.5-5.0); Alkaline Phosphatase 67 U/L (39-117); Anion Gap 17 (12-20); Aspartate Amino Transferase 32 U/L (5-37); Bilirubin Total 0.5 mg/dL (0.0-1.0); Blood Urea Nitrogen 17 mg/dL (9-16); Calcium 9.6 mg/dL (8.4-10.2); Carbon Dioxide 22 mmol/L (22-29); Chloride 106 mmol/L (96-108); Estimated Glomerular Filt Rate > 60; Glucose Random 110 mg/dL (60-115); Potassium 4.9 mmol/L (3.3-5.1); Sodium 140 mmol/L (135-145); Total Protein 7.3 g/dL (6.5-8.0)
== END 2024-02-16 07:42 | disposition home or self-care (01) ==
LOC: HO.LAB 07:41
PROVIDERS: PCP Internal Medicine; Visit Provider Internal Medicine
DX: I10 Essential (primary) hypertension (principal); K57.90 Diverticulosis of intestine, part unspecified, without perforation or abscess without bleeding
CPT/HCPCS: 36415; 80053; 85025

== ENCOUNTER 2024-07-12 10:17 | Outpatient (REF) | payer BC, SELFPAY ==
--- NOTE | ~2024-07-12 | XR_ITS ---
EXAMINATION: XR FOOT, LEFT CLINICAL INFORMATION: M79.672 - Pain in left foot; site not specified by ordering clinician. COMPARISON: None available. TECHNIQUE: AP, lateral, and oblique views of the left foot. FINDINGS: No fracture, dislocation, or suspicious bone lesion. Normal bone mineralization. Normal alignment. Joint spaces are preserved. No significant arthropathy. Normal plantar arch. Tiny plantar calcaneal spur. Mild soft tissue prominence overlying the first MCP region. Soft tissues otherwise normal. XR/XR foot LT min 3V IMPRESSION: 1. No acute bony abnormalities. 2. Mild soft tissue prominence overlying the first MTP region. Electronically signed by: Javier Alberto MD 07/12/2024 11:14 AM EDT
--- OUTSIDE RECORDS SUMMARY | 2024-07-12 12:32 | XMS_ITS | Clinical Summary ---
Author Organization [facility] Address [address] [place] [address] Phone Care Team Providers Care Package Delivery Room Service Runner Name Role Phone Physician, Pcp Unknown Primary Care Provider Michelle vailable Encounters Date Type Department Care Team Description 06/09/2024 11:10 AM EDT - 06/09/2024 11:59 PM EDT Hospital Encounter [facility] [address] [place] [phone] Discharge Disposition: Home or Self Care 06/08/2024 11:00 AM EDT - 06/08/2024 11:59 PM EDT Hospital Encounter [facility] [address] [place] [phone] Nonintractable epilepsy without status epilepticus, unspecified epilepsy type (CMS/HCC V24, CMS/HCC V28) (Primary Dx) Discharge Disposition: Home or Self Care 06/07/2024 9:34 AM EDT - 06/07/2024 11:59 PM EDT Hospital Encounter [facility] [address] [place] [phone] Discharge Disposition: Home or Self Care from [...] Epilepsy, unspecified, not intractable, without status epilepticus (CMS/[facility] V24, [facility] V28) from Last 3 Months Results * [...] Final Result from Last 3 Months Insurance [facility] Care Teams Package Delivery Room Service Runner Relationship Specialty Start Date End Date Physician, Pcp Unknown PCP - General 06/05/24
== END 2024-07-12 10:18 | disposition home or self-care (01) ==
LOC: HO.HMGCX 10:17
PROVIDERS: PCP Internal Medicine; Visit Provider Physician Assistant
DX: M79.672 Pain in left foot (principal)
CPT/HCPCS: 73630

== ENCOUNTER 2024-07-12 10:17 | Outpatient (AMB) | payer BC, SELFPAY ==
--- NOTE | 2024-07-12 10:18 | MHC.OFFWIV ---
Intake Vital Signs 07/12/24 10:21 Weight 194 lb BP 130/84 Blood Pressure Location Rt brachial Position Sitting Pulse 71 Pulse Source Pulse Oximeter Pulse Oximetry (%) 97 Oxygen Delivery Method Room Air Intake Visit Reasons: EP-lt foot swollen & pain Intake Note: Patient here for left foot pain and swelling that has been present for about 4 days. Patient Tobacco Use Status: Current everyday Tobacco user Allergies No Known Allergies Allergy (Verified 07/12/24 10:22) Do you need a note to return to daycare/school/sports/work: No HPI HPI Comments History of Present Illness Details Pt is a 59yo M who presents to office with L foot pain/swelling 2 weeks ago + L heel pain Tried new shoes but pain moved from L heel to L 1st MTP joint Never had this before Ongoing x 4 days No hx of gout Pain fine with shoes but trying to move and walk makes it worse Motrin/Ibuprofen 600mg with minimal relief Inflammation unchanged with meds No trauma or injury [facility] Medical History (Updated 07/12/24 @ 10:31 by July Weiner PA-C) Alcohol use disorder Pulmonary embolism DVT (deep venous thrombosis) Forearm fractures, both bones, closed (~08/2011) Acromioclavicular joint arthritis Pulmonary embolism and infarction (~06/2011) Rotator cuff impingement syndrome Chronic hepatitis Surgical History History of esophagogastroduodenoscopy (EGD) Hx of colonoscopy Hx of colonoscopy S/P right rotator cuff repair (~11/2011) History of right inguinal hernia repair Social History Household Members: Spouse Housing: House Do you presently have visiting nurse or other home services: No Comment: pt rings appropriately Patient Tobacco Use Status: Current everyday Tobacco user Tobacco use type: Cigarette Cigarette Packs Per Day: 0.5 Cigarettes Per Day: 4 e-Cigarette/Vaping Use: Never Used Second Hand Smoke Exposure: No Substance Use Type: Marijuana service: No Review of Systems Const Denies chills and Denies fever(s) Musc Reports abnormal gait, Reports arthralgias, Reports joint swelling and Denies numbness Skin/Breast Reports erythema, Reports skin pain and Reports skin swelling Neuro Reports abnormal gait and Denies numbness Physical Exam Vital Signs: Last Vital Signs Pulse 71 07/12/24 10:21 BP 130/84 07/12/24 10:21 Pulse Ox 97 07/12/24 10:21 Oxygen Delivery Method Room Air 07/12/24 10:21 General: Non-toxic, NAD. Speaking full sentences. Skin: Warm dry throughout. L foot has edema to dorsal aspect along 1-3 distal metatarsal region and MTP joints. + edema, redness, warmth to L foot 1st MTP joint. Eye: EOMI Respiratory: No tachypnea Cardiac: LLE DP pulse inracr MSK: + ttp L foot 1st MTP joint. + full ROM digits L foot. No ttp L ankle, achilles, calcaneus or platnar fascia. No ttp digits 2-5 L foot. Gait slow but steady. Neurology: Alert. No aphasia or facial droop. Psych: Good mood and affect Assessment & Plan Assessment & Plan (1) Foot pain, left: Code(s): M79.672 - Pain in left foot Plan: Pt seen and evaluated Xray L foot: I viewed as no fx or arthritis build up Discussed results with pt Differential: gout but no uric acid indicated as symptoms x 4-5 days, arthritis (xray ordered), fx (x ray ordered), cellultiis (afebrile without fever/chills or known skin breakdown for source of infection and denies injection into foot/drug use) No antibiotics warranted Will take tylenol and prednisone (side effects discussed) Call with concerns such as fever and antibiotics could be warranted at that time Pt gave verbal understanding and had no additional questions at time of discharge Orders: Orders XR foot LT min 3V Today M79.672 - Pain in left foot Medications: New prednisone 40 mg (2 x 20 mg) PO DAILY 10 tabs 0RF acetaminophen 500 mg PO Q6H PRN 20 caps 0RF fever Coding Level of Care Code Est Pt Level 3 (52389) Diagnoses Foot pain, left M79.672
[2024-07-12 10:21] VITALS: BP 130/84; PULSE 71; O2SAT 97
--- OUTSIDE RECORDS SUMMARY | 2024-07-12 11:59 | XMS_ITS | Clinical Summary ---
Author Organization [facility] Address [address] [place] [address] Phone Care Team Providers Care Chief Recordist Name Role Phone Physician, Pcp Unknown Primary Care Provider Michelle vailable Encounters Date Type Department Care Team Description 06/09/2024 11:10 AM EDT - 06/09/2024 11:59 PM EDT Hospital Encounter [facility] [address] [place] [phone] Discharge Disposition: Home or Self Care 06/08/2024 11:00 AM EDT - 06/08/2024 11:59 PM EDT Hospital Encounter [facility] [address] [place] [phone] Nonintractable epilepsy without status epilepticus, unspecified epilepsy type (CMS/HCC V24, CMS/HCC V28) (Primary Dx) Discharge Disposition: Home or Self Care 06/07/2024 9:34 AM EDT - 06/07/2024 11:59 PM EDT Hospital Encounter [facility] [address] [place] [phone] Discharge Disposition: Home or Self Care from Last 3 Months Social History Tobacco Use Types Packs/Day Years Used Date Smoking Tobacco: Never Assessed Sex and Gender Information Value Date Recorded Sex Assigned at Male 06/05/2024 12:30 PM EDT Legal Sex Male 10:57 AM EST Gender Identity Male 06/05/2024 12:30 PM EDT Sexual Orientation Straight 06/05/2024 12 :30 PM EDT Plan of Treatment Health Maintenance Due Date Last Done Comments DTaP,Tdap,and Td Vaccines (1 - Tdap) 1982 Pneumococcal Vaccine: 50+ Years (1 of 1 - PCV) 2013 Zoster Vaccines (1 of 2) 2013 COVID-19 Vaccine (3 - 2023-2 5 season) 2023 07/20/2020, 06/27/2020 Cholesterol Screening (Lipid Panel) 03/07/2024 Colorectal Cancer Screening: Colonoscopy 03/07/2024 Depression Screening 03/07/2024 HIV Screening 03/07/2024 Hepatitis C Screening 03/07/2024 Social Influencers of Health Screening 03/07/2024 Influenza Vaccine (Season Ended) 2024 RSV Immunization Adult Patients (1 - 1-dose 75+ series) 2038 HIB Vaccines Aged Out No longer eligi ble based on patient's age to complete this topic HPV Vaccines Aged Out No longer eligi ble based on patient's age to complete this topic Hepatitis A Vaccines Aged Out No long er eligible based on patient's age to complete this topic Hepatitis B Vaccines Aged Out No long er eligible based on patient's age to complete this topic IPV Vaccines Aged Out No longer eligi ble based on patient's age to complete this topic MMR Vaccines Aged Out No longer eligi ble based on patient's age to complete this topic Meningococcal ACWY Vaccine Aged Out N o longer eligible based on patient's age to complete this topic Meningococcal B Vaccine Aged Out No l onger eligible based on patient's age to complete this topic Pneumococcal Vaccine: Pediatrics (0 to 5 Years) and At-Risk Patients (6 to 64 Years) Aged Out No longer eligible b ased on patient's age to complete this topic RSV Immunization Patients Under 20 months Aged Out No longer eligible b ased on patient's age to complete this topic Varicella Vaccines Aged Out No longer eligible based on patient's age to complete this topic Procedures Procedure Name Priority Date/Time Associated Diagnosis Comments CONTINUOUS EEG Routine 06/07/2024 4:10 PM EDT Epilepsy, unspecified, not intractable, without status epilepticus (CMS/[facility] V24, [facility] V28) from Last 3 Months Results * Continuous EEG (06/07/2024 4:10 PM EDT) Narrative Clive Griggs MD - 06/16/2024 1:24 PM EDT This is a 16 channel digital 48-hour ambulatory EEG. ??Patient kept a diary and did not report any significant events. ??HDF EEG was separately reviewed and included wakefulness and sleep. ??During wakefulness 11 to 12 Hz symmetric alpha posteriorly and lower amplitude faster anteriorly was noted. ??Patient transition into different stages of sleep. ??Cardiac lead revealed sinus bradycardia with a rate in 50s and lowest rate of 48/min. ?? EEG did not reveal any asymmetry sharp waves or spikes. ??Occasional FIRDA was noted. Impression: Unremarkable 48-hour ambulatory EEG with patient not reporting any significant events us Clive Griggs MD NEUROLOGY ORDERABLES Final Result from Last 3 Months Insurance [facility] Care Teams Chief Recordist Relationship Specialty Start Date End Date Physician, Pcp Unknown PCP - General 06/05/24
== END 2024-07-12 10:58 | disposition home or self-care (01) ==
PROVIDERS: PCP Internal Medicine; Visit Provider Physician Assistant
DX: M79.672 Pain in left foot (principal)

== ENCOUNTER → 2024-07-12 10:39 | Outpatient (BNV) | payer BC, SELFPAY | PROVIDERS: PCP Internal Medicine; Visit Provider Radiology Diagnostic Radiology | DX: M79.672 Pain in left foot (principal) | CPT/HCPCS: 73630 ==

== ENCOUNTER 2024-08-01 08:03 | Outpatient (AMB) | payer BC, SELFPAY ==
--- OUTSIDE RECORDS SUMMARY | 2024-08-01 08:06 | XMS_ITS | Patient Health Record ---
Author Organization [facility] Address [address] [place] [address] Care Team Providers Care Polarity Tester Name Role Phone Emma Olvera Unavailable [phone] Reason For Referral No Information Encounters Encounter Location Date Provider Diagnosis [facility] [address] [place] [address] 07/27/2024 Emma Olvera Plan Of Treatment Next Appt Details Provider Name:Emma sam, 10/11/2024 09:30:00 AM, [address] [place], [phone], Insurance Providers Payer Name Payer Address Payer Phone Subscriber Number Group Number Insured Name Patient Relationship to Insured Coverage Start Date Coverage End Date [facility] Others [address] [place], [place] [id number] [phone] Andrea Mclain Self - patient is the insured
--- OUTSIDE RECORDS SUMMARY | 2024-08-01 08:06 | XMS_ITS | Clinical Summary ---
Author Organization [facility] Address [address] [place] [address] Phone Care Team Providers Care Physical Therapist Aide Name Role Phone Physician, Pcp Unknown Primary Care Provider Michelle vailable Encounters Date Type Department Care Team Description 06/09/2024 11:10 AM EDT - 06/09/2024 11:59 PM EDT Hospital Encounter [facility] [address] [place] [phone] Discharge Disposition: Home or Self Care 06/08/2024 11:00 AM EDT - 06/08/2024 11:59 PM EDT Hospital Encounter [facility] [address] [place] [phone] Nonintractable epilepsy without status epilepticus, unspecified epilepsy type (CMS/HCC V24, CMS/HCC V28) (Primary Dx) Discharge Disposition: Home or Self Care 06/07/2024 9:34 AM EDT - 06/07/2024 11:59 PM EDT Hospital Encounter [facility] [address] [place] [phone] Discharge Disposition: Home or Self Care from [...] Epilepsy, unspecified, not intractable, without status epilepticus (CMS/[facility] V24, [facility] V28) from Last 3 Months Results [...] Result from Last 3 Months Insurance [facility] Care Teams Physical Therapist Aide Relationship Specialty Start Date End Date Physician, Pcp Unknown PCP - General 06/05/24
--- OUTSIDE RECORDS SUMMARY | 2024-08-01 08:06 | XMS_ITS ---
Author Organization [facility] Address [address] [place] [address] Care Team Providers Care Dry Clipper Tender Name Role Phone Emma Olvera Unavailable [phone] REASON FOR VISIT TEXTILE DYER Encounters Encounter Location Date Provider Diagnosis [facility] [address] [place] [address] 07/27/2024 Emma Olvera Plan Of Treatment Next Appt Details Provider Name:Emma Lopez cecy, 10/11/2024 09:30:00 AM, [address] [place], [phone], Progress Notes * Ashley MCLAINOB: [birth year] (59 yo M)Acc No.[id number]:07/27/2024 Patient:?Andrea MCLAIN :1965???Age:59 Y???Sex:Male Address:[address] [place] [address], [address] * true * Date:? Generated for Printi kathleen/Kevin/eTransmitting on:?08/01/2024 08:06 AM EDT
--- NOTE | 2024-08-01 08:09 | MHC.PC.OV ---
Vital Signs 08/01/24 08:13 08/01/24 08:37 Height 5 ft 9 in Weight 85.275 kg BMI 27.8 BP 150/100 H 170/104 H Pulse 71 Temp 97.5 F Temp Source Temporal Artery Scan Pulse Oximetry (%) 98 Intake Visit Reasons: Right foot pain Accompanied by: Self / Same As Patient Allergies No Known Allergies Allergy (Verified 08/01/24 08:12) Medication List - Last Reconciled 08/01/24 by TANA Quigley amlodipine 5 mg PO DAILY omeprazole 20 mg PO DAILY@0630 sildenafil 50 mg PO Q3D PRN Tobacco use date assessed: 08/01/24 Dental Screening Dental Screen Date: 08/01/24 Did you have a dental visit in the last 12 months?: Yes Did you have a dental problem in the last 6 months where you did not have access to dental care?: No Was dental information given to patient?: Patient has dentist HPI HPI Comments History of Present Illness Details 59-year-old male with history of hypertension, GERD, history of hepatitis-C which was treated, history of alcohol use disorder who is a current 1/2 pack per day smoker presents to the office today for routine follow-up to establish care as well as evaluation of pain in the left lower extremity. He was previously following with Gastroenterology but has been lost to follow-up. He does continue taking omeprazole for GERD and Dewey's esophagus but denies symptoms. He does report ongoing alcohol use but infrequent. Drinking nonalcoholic beer daily and 1 or 2 glasses of wine on the weekends. He is compliant with his medications. He does have a history of hypertension for which he had been on amlodipine 5 mg daily but reports his neurologist recommended he discontinue this. He is reporting pain in the left lower extremity ongoing for 5 weeks. Pain is primarily located in the left heel and radiates to the left great toe. There is also pain in the right knee described as an aching that has been ongoing for 1 week. Describes pain as a 5/10 sharp but also dull pain that is exacerbated by standing for too long, sitting too long. He was seen at urgent care for this where x-ray was performed showing tissue swelling at the 1st MTP joint. No uric acid level was obtained at that time. He was prescribed prednisone which he states fully resolved his symptoms. He denies any history of gout. He is also taking ibuprofen occasionally which is not helpful. He has put a heel insert into his shoes which has not been helping. Feels pain in the R knee may be due to overcompensation. [facility] Medical History (Updated 08/02/24 @ 14:37 by TANA Quigley) Alcohol use disorder History of hepatitis C Pulmonary embolism DVT (deep venous thrombosis) Forearm fractures, both bones, closed (~08/2011) Acromioclavicular joint arthritis Pulmonary embolism and infarction (~06/2011) Rotator cuff impingement syndrome Chronic hepatitis Surgical History History of esophagogastroduodenoscopy (EGD) Hx of colonoscopy Hx of colonoscopy S/P right rotator cuff repair (~11/2011) History of right inguinal hernia repair Social History Household Members: Spouse Housing: House Do you presently have visiting nurse or other home services: No Comment: pt rings appropriately Patient Tobacco Use Status: Current everyday Tobacco user Tobacco use type: Cigarette Cigarette Packs Per Day: 0.5 Cigarettes Per Day: 4 e-Cigarette/Vaping Use: Never Used Second Hand Smoke Exposure: No Substance Use Type: Marijuana service: No Cognitive needs: No Hearing needs: No Vision needs: No Questionnaire Thrive Questionnaire Date Thrive assessed: 01/24/24 Review of Systems Const All systems reviewed & are unremarkable except as noted in HPI and below Physical exam (Primary Care) Vital Signs: Last Vital Signs Temp 97.5 F 08/01/24 08:13 Pulse 71 08/01/24 08:13 BP 170/104 H 08/01/24 08:37 Pulse Ox 98 08/01/24 08:13 BMI result Body Mass Index 27.8 Tobacco/Smoking Status: Tobacco use Status Tobacco use date assessed 08/01/24 08/01/24 08:15 Patient Tobacco Use Status Current everyday Tobacco 08/01/24 08:15 Tobacco use type Cigarette 08/01/24 08:15 e-Cigarette/Vaping Use Never Used 08/01/24 08:15 Thrive Assessment: Date of Thrive Assessment Date Thrive assessed 01/24/24 08/01/24 08:15 Const Other: Constitutional - Awake and Alert, No apparent distress Eyes - PERRLA, EOMI Cardiovascular - S1S2, RRR, No edema Respiratory - Normal lung expansion, Normal respiratory effort, No respiratory distress, CTA bilaterally Extremities - no calf tenderness bilaterally, no swelling Musculoskeletal - Normal inspection, normal ROM. Pain over the L 1st MTP joint. Significant discomfort at the insertion of the plantar fascia into the calcaneous and mild with with doriflexion. Bilateral knees with full extension and flexion, no significant ttp, no swelling or effusion. Skin - Warm/Dry Neurological - Alert & oriented x3 Psychological - Appropriate affect Coding Level of Care Code Est Pt Level 4 (03658) Complex EM visit Add On G2211 Diagnoses Gout attack M10.9 History of hepatitis C Z86.19 Hypertriglyceridemia E78.1 Uncontrolled hypertension I10 Assessment & Plan Assessment & Plan (1) Gout attack: Code(s): M10.9 - Gout, unspecified Category: Medical Plan: Uric acid level at 7.2. X-ray of the left foot with soft tissue swelling over the 1st MTP joint most likely related to acute gout flare. We will prescribe prednisone taper. Counseled on dosing and side effects though has taken in the past with good effect. Recommend ongoing cutbacks on alcohol consumption (2) History of hepatitis C: Code(s): Z86.19 - Personal history of other infectious and parasitic diseases Category: Medical Plan: Viral load ordered, follow up with gastroenterology (3) Hypertriglyceridemia: Code(s): E78.1 - Pure hyperglyceridemia Category: Medical Plan: Lipid levels performed nonfasting with triglyceride level 484 which has been elevated in the past. Recheck lipid panel fasting. Diet low in fat and overly processed foods and sugars recommended. Further discussion pending results (4) Uncontrolled hypertension: Code(s): I10 - Essential (primary) hypertension Category: Medical Plan: Reviewed neurology notes. There is no mention of discontinuation of amlodipine and patient's blood pressures are very uncontrolled. Resuming amlodipine 5mg daily. Low sodium diet. Decrease alcohol consumption. Follow up in several weeks for BP recheck Plan Follow up in the office for BP recheck in several weeks. Labs as discussed. Prednisone taper as ordered for gout Orders: Orders Basic Metabolic Panel 08/01/24 I10 - Essential (primary) hypertension, R79.89 - Other specified abnormal findings of blood chemistry, Z13.1 - Encounter for screening for diabetes mellitus, Z13.220 - Encounter for screening for lipoid disorders, Z86.19 - Personal history of other infectious and parasitic diseases Hemoglobin A1c 08/01/24 I10 - Essential (primary) hypertension, R79.89 - Other specified abnormal findings of blood chemistry, Z13.1 - Encounter for screening for diabetes mellitus, Z13.220 - Encounter for screening for lipoid disorders, Z86.19 - Personal history of other infectious and parasitic diseases TSH reflex Free T4 08/01/24 I10 - Essential (primary) hypertension, R79.89 - Other specified abnormal findings of blood chemistry, Z13.1 - Encounter for screening for diabetes mellitus, Z13.220 - Encounter for screening for lipoid disorders, Z86.19 - Personal history of other infectious and parasitic diseases Hepatitis C Viral Load 08/01/24 Z86.19 - Personal history of other infectious and parasitic diseases Complete Blood Count Auto Diff 08/01/24 I10 - Essential (primary) hypertension, R79.89 - Other specified abnormal findings of blood chemistry, Z13.1 - Encounter for screening for diabetes mellitus, Z13.220 - Encounter for screening for lipoid disorders, Z86.19 - Personal history of other infectious and parasitic diseases Lipid Panel 08/01/24 I10 - Essential (primary) hypertension, R79.89 - Other specified abnormal findings of blood chemistry, Z13.1 - Encounter for screening for diabetes mellitus, Z13.220 - Encounter for screening for lipoid disorders, Z86.19 - Personal history of other infectious and parasitic diseases Liver Panel 08/01/24 I10 - Essential (primary) hypertension, R79.89 - Other specified abnormal findings of blood chemistry, Z13.1 - Encounter for screening for diabetes mellitus, Z13.220 - Encounter for screening for lipoid disorders, Z86.19 - Personal history of other infectious and parasitic diseases Medications: New amlodipine 5 mg PO DAILY 90 tabs 1RF
[2024-08-01 08:13] VITALS: BP 150/100; PULSE 71; TEMP 36.4; O2SAT 98; BMI 27.8
[2024-08-01 08:37] VITALS: BP 170/104
== END 2024-08-01 08:35 | disposition home or self-care (01) ==
LOC: HO.HMCHD 08:04
PROVIDERS: PCP Internal Medicine; Visit Provider Physician Assistant
DX: M10.9 Gout, unspecified (principal); Z86.19 Personal history of other infectious and parasitic diseases; E78.1 Pure hyperglyceridemia; I10 Essential (primary) hypertension

== ENCOUNTER 2024-08-01 08:03 | Outpatient (REF) | payer BC, SELFPAY ==
[2024-08-01 08:59] LABS: MANUAL DIFF FLAG NO
--- OUTSIDE RECORDS SUMMARY | 2024-08-01 09:06 | XMS_ITS | Clinical Summary ---
Author Organization [facility] Address [address] [place] [address] Phone Care Team Providers Care Wire Lather Name Role Phone Physician, Pcp Unknown Primary Care Provider Michelle vailable Encounters Date Type Department Care Team Description 06/09/2024 11:10 AM EDT - 06/09/2024 11:59 PM EDT Hospital Encounter [facility] [address] [place] [phone] Discharge Disposition: Home or Self Care 06/08/2024 11:00 AM EDT - 06/08/2024 11:59 PM EDT Hospital Encounter [facility] [address] [place] [phone] Nonintractable epilepsy without status epilepticus, unspecified epilepsy type (CMS/HCC V24, CMS/HCC V28) (Primary Dx) Discharge Disposition: Home or Self Care 06/07/2024 9:34 AM EDT - 06/07/2024 11:59 PM EDT Hospital Encounter [facility] [address] [place] [phone] Discharge Disposition: Home or Self Care from [...] Epilepsy, unspecified, not intractable, without status epilepticus (CMS/[facility] V24, [facility] V28) from Last 3 Months Results [...] Final Result from Last 3 Months Insurance [facility] Care Teams Wire Lather Relationship Specialty Start Date End Date Physician, Pcp Unknown PCP - General 06/05/24
[2024-08-01 09:09] LABS: Basophils Percent Auto 0.7 % (0-2); Eosinophils Absolute Auto 0.1 X10*3/uL (0.0-0.4); Eosinophils Percent Auto 2.6 % (0-4); Hematocrit 41.2 % (42.0-52.0); Imm Gran Abs Auto 0.01 X10*3/uL (0.00-0.03); Imm Gran Pct Auto 0.2 % (0.0-0.4); Lymphocytes Absolute Auto 1.4 X10*3/uL (1.2-4.9); Lymphocytes Percent Auto 25.6 % (20-40); Mean Corpuscular Hemoglobin 30.4 pg (27.0-33.0); Mean Corpuscular Volume 89.6 fL (80.0-98.0); Mean Platelet Volume 9.1 fL (9.4-12.4); Monocytes Absolute Auto 0.8 X10*3/uL (0.1-1.2); Monocytes Percent Auto 14.5 % (2-11); Neutrophils Percent Auto 56.4 % (45-73); Platelet Count 214 X10*3/uL (160-400); Red Cell Distribution Width 13.1 % (11.0-16.0); White Blood Count 5.4 X10*3/uL (4.8-10.8)
[2024-08-01 09:29] LABS: Estimated Average Glucose 117 mg/dL; Hemoglobin A1C 144.2368 umol/L; Hemoglobin A1c % 5.7 % (<6.0); Total Hemoglobin (HGBA1C) 3729.7219 umol/L
[2024-08-01 10:13] LABS: Alanine Aminotransferase 69 U/L (0-40); Albumin Level 4.2 g/dL (3.5-5.0); Anion Gap 13 (12-20); Aspartate Amino Transferase 95 U/L (5-37); Bilirubin Direct 0.2 mg/dL (0.0-0.5); Bilirubin Total 0.9 mg/dL (0.0-1.0); Blood Urea Nitrogen 17 mg/dL (9-16); Calcium 8.8 mg/dL (8.4-10.2); Carbon Dioxide 20 mmol/L (22-29); Chloride 107 mmol/L (96-108); Cholesterol 220 mg/dL (<200); Estimated Glomerular Filt Rate > 60; Glucose Random 134 mg/dL (60-115); HDL Cholesterol 59 mg/dL (>40); Sodium 136 mmol/L (135-145); TSH reflex Free T4 0.98 uIU/mL (0.32-4.0); Total Protein 7.1 g/dL (6.5-8.0); Triglycerides 484 mg/dL (<150)
[2024-08-01 12:49] LABS: Alkaline Phosphatase 104 U/L (39-117)
[2024-08-01 15:44] LABS: Uric Acid 7.2 mg/dL (3.4-7.0)
[2024-08-03 19:53] LABS: HCV Log PCR <1.18 NOT DETECTED Log IU/mL (NOT DETECTED); HepC Viral Load <15 NOT DETECTED IU/mL (NOT DETECTED)
== END 2024-08-01 08:04 | disposition home or self-care (01) ==
LOC: HO.LAB 08:03
PROVIDERS: PCP Physician Assistant; Visit Provider Physician Assistant
DX: M79.672 Pain in left foot (principal); Z13.220 Encounter for screening for lipoid disorders; Z13.1 Encounter for screening for diabetes mellitus; R79.89 Other specified abnormal findings of blood chemistry; Z86.19 Personal history of other infectious and parasitic diseases
CPT/HCPCS: 36415; 80048; 80061; 80076; 83036; 84443; 84550; 85025; 87522

== ENCOUNTER 2024-08-29 07:49 | Outpatient (AMB) | payer BC, SELFPAY ==
--- NOTE | 2024-08-29 07:53 | A.OFFPC_ITS ---
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 He was seen in the office 3 weeks ago with elevated blood pressures. HTN-= control improved with added amlodipine 5mg daily. BP on recheck 134/86 AUD- has cut back on alcohol consumption Elevated liver enzymes- AST 95, ALT 65. Bili wnl. Prior hx of elevated lfts, but higher than previous. No abd pain, n/v./ Has cut back on etoh. Hep C viral load negative. RUQ u/s pending HYpertriglyceridemia- trig 484. Total chol 220 Gout flare- resolved with prednisone ROS: General: No fevers, malaise, unintentional weight loss Cardiovascular: No chest pain, palpitations, or leg edema Respiratory: No shortness of breath, wheezing, cough GI: No abdominal pain, nausea, vomiting, diarrhea, constipation, melena, hematochezia MSK: No myalgia, back pain. see hpi Neuro: No headaches, weakness, paresthesias Skin: No rashes or lesions EXAM: Constitutional - Awake and Alert, No apparent distress Eyes - PERRL Respiratory - Normal lung expansion, Normal respiratory effort, No respiratory distress Extremities - no calf tenderness bilaterally, no swelling Skin - Warm/Dry Neurological - Alert & oriented x3 Psychological - Appropriate affect ON LICENSE OF [facility] Medical History (Updated 08/29/24 @ 08:26 by TANA Quigley) HTN (hypertension) Alcohol use disorder History of hepatitis C Pulmonary embolism DVT (deep venous thrombosis) Forearm fractures, both bones, closed (~08/2011) Acromioclavicular joint arthritis Pulmonary embolism and infarction (~06/2011) Rotator cuff impingement syndrome Chronic hepatitis Surgical History (Updated 08/25/24 @ 16:25 by Leola Lange) History of esophagogastroduodenoscopy (EGD) Hx of colonoscopy (~10/10/21) Hx of colonoscopy S/P right rotator cuff repair (~11/2011) History of right inguinal hernia repair Social History Household Members: Spouse Housing: House Do you presently have visiting nurse or other home services: No Comment: pt rings appropriately Patient Tobacco Use Status: Current everyday Tobacco user Tobacco use type: Cigarette Cigarette Packs Per Day: 0.5 Cigarettes Per Day: 4 e-Cigarette/Vaping Use: Never Used Second Hand Smoke Exposure: No Substance Use Type: Marijuana service: No Cognitive needs: No Hearing needs: No Vision needs: No Questionnaire Thrive Questionnaire Date Thrive assessed: 01/24/24 Physical exam (Primary Care) Vital Signs: Last Vital Signs Temp 98.1 F 08/29/24 07:56 Pulse 63 08/29/24 07:56 Resp 16 08/29/24 07:56 BP 140/84 H 08/29/24 07:56 Pulse Ox 99 08/29/24 07:56 Oxygen Delivery Method Room Air 08/29/24 07:56 BMI result Body Mass Index 27.3 Tobacco/Smoking Status: Tobacco use Status Tobacco use date assessed 08/01/24 08/29/24 07:58 Patient Tobacco Use Status Current everyday Tobacco 08/29/24 07:58 Tobacco use type Cigarette 08/29/24 07:58 e-Cigarette/Vaping Use Never Used 08/29/24 07:58 Thrive Assessment: Date of Thrive Assessment Date Thrive assessed 01/24/24 08/29/24 07:58 Coding Level of Care Code Est Pt Level 4 (67535) Complex EM visit Add On G2211 Diagnoses HTN (hypertension) I10 Alcohol use disorder F10.90 Hypertriglyceridemia E78.1 History of hepatitis C Z86.19 Gout attack M10.9 Elevated LFTs R79.89 Assessment & Plan Assessment & Plan (1) HTN (hypertension): Code(s): I10 - Essential (primary) hypertension Category: Medical Plan: Controlled on recheck. Continue amlodipine 5mg daily. Low sodium diet. Smoking cessation (2) Alcohol use disorder: Code(s): F10.90 - Alcohol use, unspecified, uncomplicated Category: Medical Plan: Etoh intake improved. Limit etoh intake. (3) Hypertriglyceridemia: Code(s): E78.1 - Pure hyperglyceridemia Category: Medical Plan: Trig 484. Discussed lifestyle modifications, given written instructions. Cut back on etoh as well. Increase exercise including weights and cardio (4) History of hepatitis C: Code(s): Z86.19 - Personal history of other infectious and parasitic diseases Category: Medical Plan: Viral load negative (5) Gout attack: Code(s): M10.9 - Gout, unspecified Category: Medical Plan: Resolved. 1st occurance. Hold on allopurinol for now (6) Elevated LFTs: Code(s): R79.89 - Other specified abnormal findings of blood chemistry Category: Medical Plan: RUQ u/s pending Plan Follow up in 6 months, labs to be completed prior to visit Orders: Orders Basic Metabolic Panel 6 Months E78.1 - Pure hyperglyceridemia, F10.90 - Alcohol use, unspecified, uncomplicated, I10 - Essential (primary) hypertension, R79.89 - Other specified abnormal findings of blood chemistry Lipid Panel 6 Months E78.1 - Pure hyperglyceridemia, F10.90 - Alcohol use, unspecified, uncomplicated, I10 - Essential (primary) hypertension, R79.89 - Other specified abnormal findings of blood chemistry Liver Panel 6 Months E78.1 - Pure hyperglyceridemia, F10.90 - Alcohol use, unspecified, uncomplicated, I10 - Essential (primary) hypertension, R79.89 - Other specified abnormal findings of blood chemistry Prostate Specific Antigen 6 Months E78.1 - Pure hyperglyceridemia, F10.90 - Alcohol use, unspecified, uncomplicated, I10 - Essential (primary) hypertension, R79.89 - Other specified abnormal findings of blood chemistry
[2024-08-29 07:56] VITALS: BP 140/84; PULSE 63; RESP 16; TEMP 36.7; O2SAT 99; BMI 27.3
[2024-08-29 08:24] VITALS: BP 134/86
== END 2024-08-29 08:18 | disposition home or self-care (01) ==
LOC: HO.HMCHD 07:49
PROVIDERS: PCP Physician Assistant; Visit Provider Physician Assistant
DX: I10 Essential (primary) hypertension (principal); F10.90 Alcohol use, unspecified, uncomplicated; E78.1 Pure hyperglyceridemia; Z86.19 Personal history of other infectious and parasitic diseases; M10.9 Gout, unspecified; R79.89 Other specified abnormal findings of blood chemistry

== ENCOUNTER 2024-09-25 07:44 | Outpatient (REF) | payer BC, SELFPAY ==
--- NOTE | ~2024-09-25 | US_ITS ---
CLINICAL HISTORY: R79.89 - Other specified abnormal findings of blood chemistry --- Additional Notes or Special Instructions: RUQ US abdomen limited Comparison: None Findings: The visualized pancreas, aorta, and inferior vena cava are unremarkable. The liver is normal in size, right lobe length is 15.5 cm. Normal in echogenicity, no discrete lesion is visualized in the imaged liver. No bile duct dilatation. Common duct 3 mm diameter. Normal gallbladder. Negative sonographic Lynn sign. Main portal vein shows antegrade flow. Right kidney normal, 12.3 cm in length. No free fluid in the right upper quadrant of the abdomen. Impression: No sonographic abnormality. This document has been electronically signed by: Rhiannon Chin MD on 09/25/2024 15:31:30
--- OUTSIDE RECORDS SUMMARY | 2024-09-25 07:46 | XMS_ITS | Clinical Summary ---
Author Organization [facility] Address [address] [place] [address] Phone Care Team Providers Care Bounty Trapper Name Role Phone Physician, Pcp Unknown Primary Care Provider Michelle vailable Social History Tobacco Use Types Packs/Day Years [...] Vaccines (1 of 2) 2013 COVID-19 Vaccine ( - 2023-2 5 season) 2023 07/20/2020, 06/27/2020 [...] on patient's age to complete this topic Insurance [facility] Care Teams Bounty Trapper Relationship Specialty Start Date End Date Physician, Pcp Unknown PCP - General 06/05/24
== END 2024-09-25 07:45 | disposition home or self-care (01) ==
LOC: HO.US 07:44
PROVIDERS: PCP Physician Assistant; Visit Provider Physician Assistant
DX: R79.89 Other specified abnormal findings of blood chemistry (principal)
CPT/HCPCS: 76705

== ENCOUNTER → 2024-09-25 07:46 | Outpatient (BNV) | payer BC, SELFPAY | PROVIDERS: PCP Physician Assistant; Visit Provider Radiology Diagnostic Radiology | DX: R79.89 Other specified abnormal findings of blood chemistry (principal) | CPT/HCPCS: 76705 ==

== ENCOUNTER 2024-10-13 07:13 | Outpatient (AMB) | payer BC, SELFPAY ==
--- OUTSIDE RECORDS SUMMARY | 2024-10-13 07:14 | XMS_ITS | Clinical Summary ---
Author Organization [facility] Address [address] [place] [address] Phone Care Team Providers Care Project Mgr Name Role Phone Physician, Pcp Unknown Primary [...] Panel) 03/07/2024 Colorectal Cancer Screening: Colonoscopy 03/07/2024 HIV Screening 03/07/2024 Hepatitis C Screening 03/07/2024 Social Influencers of Health Screening 03/07/2024 Depression Screening 03/22/2024 Influenza Vaccine (#1) 2024 RSV Immunization Adult Patients (1 - [...] patient's age to complete this topic Insurance [facility] Care Teams Project Mgr Relationship Specialty Start Date End Date Physician, Pcp Unknown PCP - General 06/05/24
--- NOTE | 2024-10-13 07:32 | AM.OFFWIN_ITS ---
Intake Vital Signs 10/13/24 07:34 Height 5 ft 9 in Weight 180 lb BMI 26.6 BP 100/64 Blood Pressure Location Rt brachial Position Sitting Pulse 75 Pulse Source Pulse Oximeter Temp 98.2 F Temp Source Oral Pulse Oximetry (%) 97 Oxygen Delivery Method Room Air Intake Visit Reasons: EP ? UTI Intake Note: pt presents with low abdominal pain, low back pain, pain with urinating, body chills without NSAIDS Patient Tobacco Use Status: Current everyday Tobacco user Allergies No Known Allergies Allergy (Verified 10/13/24 07:33) Do you need a note to return to daycare/school/sports/work: No HPI HPI Comments History of Present Illness Details This is a 59-year-old male with a past medical history of hyperlipidemia, hypertension and gastroesophageal reflux disease presenting for evaluation of dysuria, urinary frequency and low back pain that he has had since Wednesday. Patient states that the urinary frequency worsened significantly last night while at work. Patient denies having any fevers or chills however has been taking ibuprofen every [id number] hours for management of his discomfort. Patient has no history of BPH or other known prostate issues and denies any unilateral flank pain. [facility] Medical History (Updated 10/13/24 @ 07:58 by Dominique Barney PA-C) HTN (hypertension) Alcohol use disorder History of hepatitis C Pulmonary embolism DVT (deep venous thrombosis) Forearm fractures, both bones, closed (~08/2011) Acromioclavicular joint arthritis Pulmonary embolism and infarction (~06/2011) Rotator cuff impingement syndrome Chronic hepatitis Surgical History (Updated 08/25/24 @ 16:25 by Leola Lange) History of esophagogastroduodenoscopy (EGD) Hx of colonoscopy (~10/10/21) Hx of colonoscopy S/P right rotator cuff repair (~11/2011) History of right inguinal hernia repair Social History Household Members: Spouse Housing: House Do you presently have visiting nurse or other home services: No Comment: pt rings appropriately Patient Tobacco Use Status: Current everyday Tobacco user Tobacco use type: Cigarette Cigarette Packs Per Day: 0.5 Cigarettes Per Day: 4 e-Cigarette/Vaping Use: Never Used Second Hand Smoke Exposure: No Substance Use Type: Marijuana service: No Cognitive needs: No Hearing needs: No Vision needs: No Review of Systems Const All systems reviewed & are unremarkable except as noted in HPI and below Denies chills, Denies fatigue and Denies fever(s) Eyes Reports no additional complaints ENT Reports no additional complaints Card Reports no additional complaints Resp Reports no additional complaints GI Reports no additional complaints Reports as per HPI, Denies hematuria, Denies oliguria, Denies difficulty urinating, Reports dysuria, Reports urinary frequency and Denies urinary incontinence Musc Reports no additional complaints Skin/Breast Reports system reviewed and no additional complaints, except as documented Neuro Reports no additional complaints Psych Reports no additional complaints Endo Reports no additional complaints and Denies fatigue Noe/Lymph Reports no additional complaints Aller/Immun Reports no additional complaints Physical Exam Vital Signs: Last Vital Signs Temp 98.2 F 10/13/24 07:34 Pulse 75 10/13/24 07:34 BP 100/64 10/13/24 07:34 Pulse Ox 97 10/13/24 07:34 Oxygen Delivery Method Room Air 10/13/24 07:34 BMI result Body Mass Index 26.6 Patient is afebrile. Const General: cooperative, healthy appearing, comfortable, no acute distress, well developed, alert, awake and Physically active; No ill appearing Nutritional Appearance: well nourished Orientation/consciousness: patient oriented x3 Limitations: no limitations GI Inspection: Yes normal to inspection Palpation (GI): Soft to palpation, Tenderness to palpation present (GI) suprapubicly and no guarding Auscultation: normal bowel sounds General: Yes Bimanual renal exam normal bilaterally, No bladder normal to palpation (tenderness without guarding) and Yes no CVA tenderness Back/Spine/Pelvis Back: no CVA tenderness Skin General skin exam: no rashes or lesions noted Neuro General: patient oriented x3 Psych Appearance: grossly normal Mental Status: mental status grossly normal Insight: Good insight present (Psych) Judgement: Good judgement present (Psych) Results Reviewed Results Reviewed: Urinalysis is reviewed; positive for leukocytes and blood. Assessment & Plan Assessment & Plan (1) Dysuria: Comment: Patient's urinalysis coupled with his history and examination are consistent with an acute urinary tract infection. Patient will be discharged home with antibiotic therapy. Code(s): R30.0 - Dysuria Plan: Cefuroxime 500 mg q.12 hours x7 days. Ibuprofen or Tylenol as needed for discomfort. Orders: Orders Urine Culture Today R30.0 - Dysuria Medications: New cefuroxime axetil 500 mg PO Q12H 14 tabs 0RF Coding Level of Care Code Est Pt Level 3 (14560) Diagnoses Dysuria R30.0 Time Spent (min) 20
[2024-10-13 07:34] VITALS: BP 100/64; PULSE 75; TEMP 36.8; O2SAT 97; BMI 26.6
== END 2024-10-13 08:29 | disposition home or self-care (01) ==
PROVIDERS: PCP Physician Assistant; Visit Provider Physician Assistant
DX: R30.0 Dysuria (principal)

== ENCOUNTER 2024-10-13 07:13 | Outpatient (REF) | payer BC, SELFPAY | END 2024-10-13 07:14 | disposition home or self-care (01) | LOC: HO.LNP 07:13 | PROVIDERS: PCP Physician Assistant; Visit Provider Physician Assistant | DX: R30.0 Dysuria (principal); M54.50 Low back pain, unspecified; R10.30 Lower abdominal pain, unspecified; R35.0 Frequency of micturition | CPT/HCPCS: 87086; 87088; 87186 ==

== ENCOUNTER 2025-02-07 06:59 | Outpatient (RCR) | payer BC, SELFPAY | END 2025-02-07 08:28 | disposition home or self-care (01) | LOC: HO.PT 06:59 | PROVIDERS: PCP Physician Assistant; Visit Provider Student in an Organized Health Care Education/Training Program | DX: M72.2 Plantar fascial fibromatosis (principal) | CPT/HCPCS: 97110; 97140; 97162; 97530; 97535 ==

== ENCOUNTER 2025-02-28 07:56 | Outpatient (AMB) | payer BC, SELFPAY ==
--- NOTE | 2025-02-28 07:59 | MHC.PC.OV ---
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 HTN- continues on amlodipine 5 mg daily AUD- has cut back on alcohol consumption. Drinking primarily on the weekends. Bloody Nupur or [place] zero Elevated liver enzymes- AST 95, ALT 65. Bili wnl. Prior hx of elevated lfts, but higher than previous. No abd pain, n/v./ Has cut back on etoh. Hepatitis-C antibody was positive, viral load was negative. Abdominal ultrasound was normal HYpertriglyceridemia- trig 484. Total chol 220 Gout flare- resolved with prednisone. Uric acid level has been 7.2 Concerns: Pain in the foot did resolve with prednisone. However, he did experience recurrent of pain in the plantar surface. He was seen by Dr. Olvera in Podiatry. Received a cortisone injection was not helpful. He did also complete physical therapy with great improvement. However the pain has now again referred. He has an MRI of the foot and ankle ordered Concerns: Walking into work or home needs to urinate. Any activity brings this on. Incomplete bladder emptying. No nocturia Memory issues- forgetting conversations. Has to make lists. Erectile dysfunction-he has been out of sildenafil ROS: see hpi EXAM: Constitutional - Awake and Alert, No apparent distress Eyes - PERRL Respiratory - Normal lung expansion, Normal respiratory effort, No respiratory distress Extremities - no calf tenderness bilaterally, no swelling Skin - Warm/Dry Neurological - Alert & oriented x3 Psychological - Appropriate affect PFSH Medical History (Updated 02/28/25 @ 08:21 by TANA Quigley) HTN (hypertension) Alcohol use disorder History of hepatitis C Pulmonary embolism DVT (deep venous thrombosis) Forearm fractures, both bones, closed (~08/2011) Acromioclavicular joint arthritis Pulmonary embolism and infarction (~06/2011) Rotator cuff impingement syndrome Chronic hepatitis Surgical History (Updated 08/25/24 @ 16:25 by Leola Lange) History of esophagogastroduodenoscopy (EGD) Hx of colonoscopy (~10/10/21) Hx of colonoscopy S/P right rotator cuff repair (~11/2011) History of right inguinal hernia repair Social History Household Members: Spouse Housing: House Do you presently have visiting nurse or other home services: No Comment: pt rings appropriately Patient Tobacco Use Status: Current everyday Tobacco user Tobacco use type: Cigarette Cigarette Packs Per Day: 0.5 Cigarettes Per Day: 4 e-Cigarette/Vaping Use: Never Used Second Hand Smoke Exposure: No Substance Use Type: Marijuana service: No Cognitive needs: No Hearing needs: No Vision needs: No Questionnaire PHQ-9 Over the last 2 weeks, how often have you been bothered by any of the following problems? 1. Little interest or pleasure in doing things: not at all 2. Feeling down, depressed, or hopeless: not at all 3. Trouble falling or staying asleep, or sleeping too much: not at all 4. Feeling tired or having little energy: not at all 5. Poor appetite or overeating: not at all 6. Feeling bad about yourself - or that you are a failure or have let yourself or your family down: not at all 7. Trouble concentrating on things, such as reading the newspaper or watching television: not at all 8. Moving or speaking so slowly that other people could have noticed. Or the opposite - being so fidgety or restless that you have been moving around a lot more than usual: not at all 9. Thoughts that you would be better off or of hurting yourself in some way: not at all Total score: 0 Depression Screening Interpretation: Negative Depression Screening Done: Yes Source: Developed by Drs. Davy Reyna, Raymond Allen and colleagues, with an educational aimee from [employer]. Thrive Questionnaire Date Thrive assessed: 02/28/25 I am a: Patient What is your living situation today?: I have a steady place to live Within the past 12 months, did the food you bought not last and you didn't have the money to get more?: Never true Within the past 12 months, did you worry whether your food would run out before you got money to buy more?: Never true Do you have trouble paying for medicines?: No Do you have trouble getting transportation to medical appointments?: No Do you have trouble paying your heating and electricity bill?: No Do you have trouble taking care of your child, family member or friend?: No Do you have trouble with day-to-day activities such as bathing, preparing meals, shopping, managing finances, etc.?: No Are you currently unemployed and looking for a job?: No Are you interested in more education?: No Please select the resources that you would like help with: None THRIVE Score: 0 AUDIT C Alcohol Use Questionnaire (AUDIT-C) 2. How many drinks containing alcohol do you have on a typical day when you are drinking?: 1 or 2 3. How often do you have six or more drinks on one occasion?: Less than monthly Total Score: 1 CALVIN-7 AMB Questionnaire CALVIN-7 Date CALVIN - 7 assessed: 02/28/25 Feeling nervous, anxious, or on edge: 0 = Not at all Not being able to stop or control worryin = Not at all Worrying too much about different things: 1 = Several days Trouble relaxin = Not at all Being so restless that it is hard to sit still: 0 = Not at all Becoming easily annoyed or irritable: 1 = Several days Feeling afraid as if something awful might happen: 0 = Not at all Total CALVIN-7 score (0-4 normal; 5-9 mild; 10-14 moderate; 15-21 severe): 2 Source: Developed by Drs. Davy Reyna, Raymond Allen and colleagues, with an educational aimee from [employer]. Physical exam (Primary Care) Vital Signs: Last Vital Signs Temp 97.9 F 02/28/25 08:06 Pulse 67 02/28/25 08:06 BP 158/84 H 02/28/25 08:06 Pulse Ox 98 02/28/25 08:06 Oxygen Delivery Method Room Air 02/28/25 08:06 BMI result Body Mass Index 28.4 Tobacco/Smoking Status: Tobacco use Status Tobacco use date assessed 08/01/24 02/28/25 08:01 Patient Tobacco Use Status Current everyday Tobacco 02/28/25 08:01 Tobacco use type Cigarette 02/28/25 08:01 e-Cigarette/Vaping Use Never Used 02/28/25 08:01 PHQ-9: PHQ-9 Score PHQ-9: Total score 0 02/28/25 08:50 Depression Screening Interpretation: Negative Thrive Assessment: Date of Thrive Assessment Date Thrive assessed 02/28/25 02/28/25 08:50 Coding Level of Care Code Est Pt Level 4 (33569) Add On Problem Visit Only Diagnoses HTN (hypertension) I10 Alcohol use disorder F10.90 Incomplete bladder emptying R33.9 Elevated LFTs R79.89 Assessment & Plan Assessment & Plan (1) HTN (hypertension): Code(s): I10 - Essential (primary) hypertension Category: Medical Plan: Uncontrolled. Increase losartan to 10 mg daily. Continue with low-sodium diet. (2) Alcohol use disorder: Code(s): F10.90 - Alcohol use, unspecified, uncomplicated Category: Medical Plan: Ventilated on cutting back on alcohol intake. He should continue being mindful of his alcohol consumption. No more than 2 alcoholic beverages per day, (3) Incomplete bladder emptying: Code(s): R33.9 - Retention of urine, unspecified Category: Medical Plan: Monitor symptoms for now. Check PSA (4) Elevated LFTs: Code(s): R79.89 - Other specified abnormal findings of blood chemistry Category: Medical Plan: Repeat LFTs today. Reviewed last ultrasound of the abdomen. Plan Follow-up in the office in 2 weeks for blood pressure check and to further investigate memory issues he is reporting. Orders: Orders Uric Acid Today M79.672 - Pain in left foot LDL Cholesterol Direct Today E78.1 - Pure hyperglyceridemia Referrals Urology Referral R33.9 - Retention of urine, unspecified, R39.15 - Urgency of urination Medications: New amlodipine 10 mg PO DAILY 90 tabs 0RF Discontinued amlodipine Discontinued Reason: Doctor's Order 5 mg PO DAILY 90 tabs 1RF
[2025-02-28 08:06] VITALS: BP 158/84; PULSE 67; TEMP 36.6; O2SAT 98; BMI 28.4
[2025-02-28 12:32] VITALS: BP 160/100
== END 2025-02-28 08:33 | disposition home or self-care (01) ==
LOC: HO.HMCHD 07:57
PROVIDERS: PCP Physician Assistant; Visit Provider Physician Assistant
DX: I10 Essential (primary) hypertension (principal); F10.90 Alcohol use, unspecified, uncomplicated; R33.9 Retention of urine, unspecified; R79.89 Other specified abnormal findings of blood chemistry

== ENCOUNTER 2025-03-01 07:02 | Outpatient (REF) | payer BC, SELFPAY ==
--- OUTSIDE RECORDS SUMMARY | 2024-11-27 06:00 | XMS_ITS ---
Author Organization [facility] Address [address] [place] [address] Care Team Providers Care Orthotic Finish Grinding Technician Name Role Phone Danita Khalil Primary Care Provider Emma Cheung [phone] REASON FOR VISIT r/s for sooner apt Encounters Encounter Location Date Provider Diagnosis [address] [address] 11/27/2024 Emma Olvera Plan Of Treatment No Information Progress Notes * Adnrea MCLAIN TDOB: [birth year] (60 yo M)Acc No.[id number]:11/27/2024 Progress Notes Patient: Andrea SHELDON Provider: Candi Olvera DPM :1965 A ge:59 Y S ex:Male Date:11/27/2024 Address:[address] [place], [place] [id number] Pcp:Danita Khalil Subjective: * Chief Complaints: * [...] Olvera DPM Date: 0 11/27/2024 Generated for Derrell wang/Kevin/eTransmitting on: 05/02/2024 07:05 AM EST
--- OUTSIDE RECORDS SUMMARY | 2025-03-01 07:06 | XMS_ITS | Patient Health Record ---
Author Organization [facility] Address [address] [place] [address] Care Team Providers Care Thoracic Surgeon Name Role Phone Khalil, Danita Primary Care Provider Emma Cheung Unavailable [phone] Allergies No Known Allergies Reason For Referral No Information Medications Medication SIG (Take, Route, Frequency, Duration) Notes Start Date End Date Status Omeprazole Active amLODIPine Besylate Active predniSONE 5 MG TAKE 5 TABLETS BY [facility] FOR 3 DAYS, 4 TABLETS FOR 3 DAYS, 3 TABLETS FOR 3 DAYS, 2 TABLETS FOR 3 DAYS, 1 TABLET FOR 3 DAYS; Duration: 15 Not-Taking Night Splint AFO - L1930 1 wear at rest; Duration: 30 days Active Immunizations Vaccine Route Administration Date Status Comme nts Influenza Unknown 10/11/2024 Refused Social History Tobacco Use: Social History Observation Description Date Details (start date - stop date) Current Smoker 09/20/1984 - NA Tobacco use other than smoking: Question Answer Notes Are you an other tobacco user? No Tobacco Control (Standard) Question Answer Notes Tobacco use: Current smoker When did you start smoking? 09/20/1984 How often do you smoke cigarettes? Every day How many cigarettes a day do you smoke? 6-10 How soon after you wake up d o you smoke your first cigarette? 6-30 minutes Are you interested in quitting? Ready to quit Additional Findings: Tobacco user Modera te cigarette smoker (10-19 cigs/day) AUDIT-C (Standard) Question Answer Notes Did you have a drink contain ing alcohol in the past year? Yes How often did you have a dri nk containing alcohol in the past year? Never (0 point) How many drinks did you have on a typical day when you were drinking in the past year? 1 or 2 drinks (0 point) How often did you have six o r more drinks on one occasion in the past year? Never (0 point) Points 0 Interpretation Negative Problems Problem Type SNOMED Code ICD Code Onset Dates Problem Status W/U Status Risk Notes Problem Plantar fasciitis of left foot (1216089357475877 1) Plantar fasciitis of left foot (M72.2) Active confirmed Problem Localized, primary osteoarthritis of the ankle and/or foot (827945885) Primary osteoarthritis of left ankle (M19.072) Active confirmed Problem Interstitial myositis (22214144) Interstitial myositis of left foot (M60.172) Active confirmed Vital Signs Blood pressure diastolic 67 mm Hg 12/06/2024 Height 6ft 8in in 02/13/2025 Blood pressure systolic 122 mm Hg 12/06/2024 Weight 194 lbs 02/13/2025 BMI 21.31 kg/m2 02/13/2025 Procedures Procedure Date Ordered Date Performed Result Body Sit e 74353, L8421-XVTXB/INJECT, JOINT/BURSA 11/15/2024 N/A Encounters Encounter Location Date Provider Diagnosis [address] [address] 10/11/2024 Emma Olvera Pain in left foot M79.672 ; Plantar fasciitis of left foot M72.2 ; Calcaneal spur, left foot M77.32 ; Interstitial myositis of left foot M60.172 and Bursitis of left foot M77.[address] [address] 11/15/2024 Emma Olvera Bursitis of left foot M77.52 ; Plantar fasciitis of left foot M72.2 ; Pain in left foot M79.672 ; Calcaneal spur, left foot M77.32 ; Interstitial myositis of left foot M60.172 and Primary osteoarthritis of left ankle M19.[address] [address] 12/06/2024 Emma Olvera Pain in left foot M79.672 ; Plantar fasciitis of left foot M72.2 ; Calcaneal spur, left foot M77.32 ; Interstitial myositis of left foot M60.172 and Bursitis of left foot M77.52 [facility] [address] [place] [address] 02/13/2025 Emma Olvera Pain in left foot M79.672 ; Plantar fasciitis of left foot M72.2 ; Calcaneal spur, left foot M77.32 ; Interstitial myositis of left foot M60.172 and Bursitis of left foot M77.52 [facility] [address] [place] [address] 02/13/2025 [facility] [address] 07/27/2024 Emma Olvera [address] [address] 08/30/2024 Emma Olvera [address] [address] 11/14/2024 Emma Olvera [address] [address] 11/23/2024 Emma Olvera Pain in left foot M79.[address] [address] 12/06/2024 Emma Olvera [address] [address] 12/07/2024 Emma May Assessments Encounter Date Diagnosis (ICD Code) Assessment Notes Treatment Notes Treatment Clinical Notes Section Notes 10/11/2024 Pain in left foot (ICD-10 - M79.672) 10/11/2024 Plantar fasciitis of left foot (ICD-10 - M72.2) Patient Educated with: HEEL CORD STRETCHES.pdf (HEEL CORD STRETCHES.pdf ) Patient Educated with: RICE THERAPY.pdf (RICE THERAPY.pdf) 11/15/2024 Plantar fasciitis of left foot (ICD-10 - M72.2) Patient Educated with: HEEL CORD STRETCHES.pdf (HEEL CORD STRETCHES.pdf ) Patient Educated with: RICE THERAPY.pdf (RICE THERAPY.pdf) 11/15/2024 Bursitis of left foot (ICD-10 - M77.52) Patient Educated with: RICE THERAPY.pdf (RICE THERAPY.pdf) Patient Educated with: INJECTIONTHER APY.pdf (INJECTIONTHE RAPY.pdf) 11/23/2024 Pain in left foot (ICD-10 - M79.672) 12/06/2024 Pain in left foot (ICD-10 - M79.672) 12/06/2024 Plantar fasciitis of left foot (ICD-10 - M72.2) Patient Educated with: HEEL CORD STRETCHES.pdf (HEEL CORD STRETCHES.pdf ) Patient Educated with: RICE THERAPY.pdf (RICE THERAPY.pdf) 02/13/2025 Pain in left foot (ICD-10 - M79.672) 02/13/2025 Plantar fasciitis of left foot (ICD-10 - M72.2) Patient Educated with: HEEL CORD STRETCHES.pdf (HEEL CORD STRETCHES.pdf ) Patient Educated with: RICE THERAPY.pdf (RICE THERAPY.pdf) 02/13/2025 Calcaneal spur, left foot (ICD-10 - M77.32) 12/06/2024 Calcaneal spur, left foot (ICD-10 - M77.32) 11/15/2024 Pain in left foot (ICD-10 - M79.672) 10/11/2024 Calcaneal spur, left foot (ICD-10 - M77.32) 11/15/2024 Calcaneal spur, left foot (ICD-10 - M77.32) 10/11/2024 Interstitial myositis of left foot (ICD-10 - M60.172) 12/06/2024 Interstitial myositis of left foot (ICD-10 - M60.172) 02/13/2025 Interstitial myositis of left foot (ICD-10 - M60.172) 02/13/2025 Bursitis of left foot (ICD-10 - M77.52) 11/15/2024 Interstitial myositis of left foot (ICD-10 - M60.172) 12/06/2024 Bursitis of left foot (ICD-10 - M77.52) 10/11/2024 Bursitis of left foot (ICD-10 - M77.52) 11/15/2024 Primary osteoarthritis of left ankle (ICD-10 - M19.072) Plan Of Treatment Pending Test Test Name Order Date X ray : Foot, left 3V 10/11/2024, [id number]-SZNMG/INJECT, JOINT/BURSA 0 11/15/2024 Insurance Providers Payer Name Payer Address Payer Phone Subscriber Number Group Number Insured Name Patient Relationship to Insured Coverage Start Date Coverage End Date [employer] [address] [place] [address] [id number] Andrea Mclain Self - patient is the insured Medical (General) History Medical History History ICD Code Back, Hip, Knee Pain Broken Bone(s) Covid-19 Hepatitis C High Blood Pressure Measles Joint implants/screws Chicken Pox DVT and PE Surgical History Surgery Date(Month/Year) Inguinal Hernia 11/1990 Radius + Ulna 07/2011
--- OUTSIDE RECORDS SUMMARY | 2025-03-01 07:06 | XMS_ITS | Clinical Summary ---
Author Organization [facility] Address [address] [place] [address] Phone Care Team Providers Care Hot Metal Mixer Operator Helper Name Role Phone Physician, Pcp Unknown Primary [...] Health Maintenance Due Date Last Done Comments Colorectal Cancer Screening: Colonoscopy 1963 DTaP,Tdap,and Td Vaccines (1 - Tdap) 1982 Pneumococcal Vaccine: 50+ Years (1 of 1 - PCV) 2013 Zoster Vaccines (1 of 2) 2013 Cholesterol Screening (Lipid Panel) 03/07/2024 HIV Screening 03/07/2024 Hepatitis C Screening 03/07/2024 Social Influencers of Health Screening 03/07/2024 Depression Screening 03/22/2024 COVID-19 Vaccine (3 - 2024-2 6 season) 2024 07/20/2020, 06/27/2020 Influenza Vaccine (#1) 2024 RSV Immunization Adult [...] patient's age to complete this topic [facility] Care Teams Hot Metal Mixer Operator Helper Relationship Specialty Start Date End Date Physician, Pcp Unknown PCP - General 06/05/24
[2025-03-01 08:30] LABS: Alanine Aminotransferase 48 U/L (0-40); Albumin Level 4.7 g/dL (3.5-5.0); Alkaline Phosphatase 78 U/L (39-117); Anion Gap 12 (12-20); Aspartate Amino Transferase 41 U/L (5-37); Blood Urea Nitrogen 14 mg/dL (9-16); Calcium 9.0 mg/dL (8.4-10.2); Carbon Dioxide 26 mmol/L (22-29); Chloride 103 mmol/L (96-108); Cholesterol 207 mg/dL (<200); Estimated Glomerular Filt Rate > 60; HDL Cholesterol 83 mg/dL (>40); Potassium 3.8 mmol/L (3.3-5.1); Sodium 137 mmol/L (135-145); Total Protein 7.4 g/dL (6.5-8.0); Triglycerides 93 mg/dL (<150); Uric Acid 7.2 mg/dL (3.4-7.0)
[2025-03-01 08:45] LABS: Prostate Specific Antigen 1.44 ng/mL (<0.05-4.0)
== END 2025-03-01 07:03 ==
LOC: HO.LAB 07:02
PROVIDERS: PCP Physician Assistant; Visit Provider Physician Assistant
DX: I10 Essential (primary) hypertension (principal); F10.90 Alcohol use, unspecified, uncomplicated; E78.1 Pure hyperglyceridemia; R79.89 Other specified abnormal findings of blood chemistry; M79.672 Pain in left foot; Z12.5 Encounter for screening for malignant neoplasm of prostate
CPT/HCPCS: 36415; 80048; 80061; 80076; 83721; 84153; 84550

== ENCOUNTER 2025-03-14 07:49 | Outpatient (AMB) | payer BC, SELFPAY ==
--- OUTSIDE RECORDS SUMMARY | 2024-11-27 06:00 | XMS_ITS ---
Author Organization [facility] Address [address] [place] [address] Care Team Providers Care Makeup Artist Name Role Phone Danita Khalil Primary Care Provider Emma Cheung [phone] REASON FOR VISIT r/s for sooner apt Encounters Encounter Location Date Provider Diagnosis [address] [address] 11/27/2024 Emma Olvera Plan Of Treatment Next Appt Details Provider Name:Emma sam, 03/29/2025 08:30:00 AM, [address] [place] [address], [id number], Progress Notes * Andrea MCLAIN TDOB: [birth year] (60 yo M)Acc No.[id number]:11/27/2024 Progress Notes Patient: Kellee HESTERAndrea Garcia Provider: Candi Olvera DPM :1965 A ge:59 Y S ex:Male Date:11/27/2024 Address:[address] [place] [address] [facility] [id number] Pcp:Danita Khalil Subjective: * Chief Complaints: * 1 . R/s for sooner apt. * Medical History: Objective: * Vitals: Assessment: Plan: * Treatment: * Images: * The named appointment provid er may or may not be the originator of this progress note, and it is not deemed complete until electronically signed by the appointment provider. Sign off status: Pending * Provider: Candi Olvera DPM Date: 0 11/27/2024 Generated for Dererll Taylor on: 05/15/2024 07:53 AM EST
--- OUTSIDE RECORDS SUMMARY | 2025-03-14 07:53 | XMS_ITS | Clinical Summary ---
Author Organization [facility] Address [address] [place] [address] Phone Care Team Providers Care Rotary Drill Operator Name Role Phone Physician, Pcp Unknown Primary [...] patient's age to complete this topic Insurance [facility] Care Teams Rotary Drill Operator Relationship Specialty Start Date End Date Physician, Pcp Unknown PCP - General 06/05/24
--- OUTSIDE RECORDS SUMMARY | 2025-03-14 07:53 | XMS_ITS | Clinical Summary ---
Author Organization Marilu Quarles [facility] Address [address] [place] [address] Care Team Providers Care Enterprise Project Manager Name Role Phone Carlos Thompson Primary Care Provider [phone] Allergies No known active allergies Medications omeprazole (PriLOSEC) [address] capsule Take 20 mg by mouth daily. Active acetaminophen (TYLENOL) 325 MG tablet Take 2 tablets (650 mg total) by mouth every 4 hours as needed for pain or fever. 60 tablet 09/29/2016 Active Active Problems Problem Noted Date Diagnosed Date History of pulmonary embolism 03/22/2011 Submandibular sialolithiasis Overview (09/17/2016): Left Family History Medical History Relation Comments Coronary artery disease Father Breast cancer Mother Other Mother pelvic tumor Deep vein thrombosis Sister 1 Relation Status Comments Brother 1 Alive Brother 2 Alive Brother 3 Alive Brother 4 Alive Brother 5 Alive Daughter Alive Father Alive Mother Alive Sister 1 Alive Sister 2 Alive Social History Tobacco Use Types Packs/Day Years Used Date Smoking Tobacco: Every Day Cigarettes Alcohol Use Standard Drinks/Week Comments Yes 16 (1 standard drink = 0.6 oz pu re alcohol) Sex and Gender Information Value Date Recorded Sex Assigned at Not on file Legal Sex Male 11:30 AM EDT Gender Identity Not on file Sexual Orientation Not on file Last Filed Vital Signs Vital Sign Reading Time Taken Comments Blood Pressure 175/89 09/30/2016 5:45 PM EDT Pulse 78 09/30/2016 5:45 PM EDT Temperature 36.3 C (97.4 F) 09/30/2016 5:45 PM EDT Respiratory Rate 18 09/30/2016 5:45 PM EDT Oxygen Saturation 98% 09/30/2016 4:13 PM EDT Inhaled Oxygen Concentration - - Weight 88.8 kg (195 lb 11.2 oz) 09/17/2016 9:01 AM EDT Height 177.8 cm (5' 10 ) 09/17/2016 9:01 AM EDT Body Mass Index 28.08 09/17/2016 9:01 AM EDT Plan of Treatment Not on file Insurance [facility] Care Teams Enterprise Project Manager Relationship Specialty Start Date End Date Carlos Thompson [address] [place] [address] PCP - General 08/13/16
--- NOTE | 2025-03-14 07:54 | MHC.PC.OV ---
Vital Signs 03/14/25 07:58 Height 5 ft 9 in Weight 87.203 kg BMI 28.4 BP 122/76 Blood Pressure Location Lt brachial Respiration 14 Pulse 67 Pulse Source Pulse Oximeter Temp 97.8 F Temp Source Temporal Artery Scan Pulse Oximetry (%) 97 Oxygen Delivery Method Room Air Intake Visit Reasons: 2 wk f/u BP and MOCA Construction Grip Required: No Accompanied by: Self / Same As Patient Allergies No Known Allergies Allergy (Verified 03/14/25 07:54) Medication List - Last Reconciled 03/14/25 by TANA Quigley amlodipine 10 mg PO DAILY omeprazole 20 mg PO DAILY@0630 sildenafil 100 mg PO DAILY PRN Tobacco use date assessed: 08/01/24 Dental Screening Dental Screen Date: 08/01/24 HPI HPI Comments History of Present Illness Details 59-year-old male with history of hypertension, GERD, history of hepatitis-C which was treated, history of alcohol use disorder presents for follow-up on blood pressure as well as memory issues. At last visit, amlodipine was increased to 10 mg daily which he has been taking as prescribed. Blood pressure in the office today 122/76. At home, blood pressures have been around 132/70. Ongoing memory issues-he reports that he has been having difficulties with daily routine, performing tasks backwards at times. He reports at work, he has a routine where he clocks in, quickly reviews who is present at the office, works on collecting equipment and moving forward. However, he performed all the tests backwards today. He also states that he has difficulty remembering appointments and needs to keep a calendar. He states the is good with names and has never gotten lost. He has trouble with some word-finding. Denies being any any additional stress or significant changes in his life. He states that his has noticed and has recommended evaluation. MOCA performed in the office today Visuospatial/executive-2/2 2/3 Naming-3/3 Memory-5/5 (no points) Attention-1/2 1/ 3/3 Language-2/2 03/22 Obstruction-2/2 Delayed recall-4/5 Orientation-6/6 Score 26/30- normal ROS: none EXAM: Constitutional - Awake and Alert, No apparent distress Eyes - PERRL Skin - Warm/Dry Neurological - Alert & oriented x3 Psychological - Appropriate affect [facility] Medical History (Updated 03/14/25 @ 09:11 by TANA Quigley) Gout attack HTN (hypertension) Alcohol use disorder History of hepatitis C Pulmonary embolism DVT (deep venous thrombosis) Forearm fractures, both bones, closed (~08/2011) Acromioclavicular joint arthritis Pulmonary embolism and infarction (~06/2011) Rotator cuff impingement syndrome Chronic hepatitis Surgical History (Updated 08/25/24 @ 16:25 by Leola Lange) History of esophagogastroduodenoscopy (EGD) Hx of colonoscopy (~10/10/21) Hx of colonoscopy S/P right rotator cuff repair (~11/2011) History of right inguinal hernia repair Social History Household Members: Spouse Housing: House Do you presently have visiting nurse or other home services: No Comment: pt rings appropriately Patient Tobacco Use Status: Current everyday Tobacco user Tobacco use type: Cigarette Cigarette Packs Per Day: 0.5 Cigarettes Per Day: 4 e-Cigarette/Vaping Use: Never Used Second Hand Smoke Exposure: No Substance Use Type: Marijuana service: No Cognitive needs: No Hearing needs: No Vision needs: No Questionnaire Thrive Questionnaire Date Thrive assessed: 02/28/25 CALVIN-7 AMB Questionnaire CALVIN-7 Date CALVIN - 7 assessed: 02/28/25 Source: Developed by Drs. Davy Reyna, Alena Walsh, Raymond Canales and colleagues, with an educational aimee from [employer]. Physical exam (Primary Care) Vital Signs: Last Vital Signs Temp 97.8 F 03/14/25 07:58 Pulse 67 03/14/25 07:58 Resp 14 03/14/25 07:58 BP 122/76 03/14/25 07:58 Pulse Ox 97 03/14/25 07:58 Oxygen Delivery Method Room Air 03/14/25 07:58 BMI result Body Mass Index 28.4 Tobacco/Smoking Status: Tobacco use Status Tobacco use date assessed 08/01/24 03/14/25 07:59 Patient Tobacco Use Status Current everyday Tobacco 03/14/25 07:59 Tobacco use type Cigarette 03/14/25 07:59 e-Cigarette/Vaping Use Never Used 03/14/25 07:59 Thrive Assessment: Date of Thrive Assessment Date Thrive assessed 02/28/25 03/14/25 07:59 Coding Level of Care Code Est Pt Level 4 (31617) Add On Problem Visit Only Diagnoses HTN (hypertension) I10 Memory loss R41.3 Assessment & Plan Assessment & Plan (1) HTN (hypertension): Code(s): I10 - Essential (primary) hypertension Category: Medical Plan: Controlled. Continue amlodipine 10 mg daily. Low-sodium diet (2) Memory loss: Code(s): R41.3 - Other amnesia Category: Medical Plan: No cognitive impairment noted with [place]. Discussed cognitive exercises that can be performed at home. Recommend B complex. Should symptoms persist, can refer to memory Clinic Plan F follow-up in 6 months with labs completed prior to visit Orders: Orders Lipid Panel 6 Months E78.1 - Pure hyperglyceridemia, F39 - Unspecified mood [affective] disorder, I10 - Essential (primary) hypertension Liver Panel 6 Months E78.1 - Pure hyperglyceridemia, F39 - Unspecified mood [affective] disorder, I10 - Essential (primary) hypertension Basic Metabolic Panel 6 Months E78.1 - Pure hyperglyceridemia, F39 - Unspecified mood [affective] disorder, I10 - Essential (primary) hypertension Medications: New sildenafil administer 30 minutes to 4 hours before activity 100 mg PO DAILY PRN 14 tabs 5RF sexual activity B-complex with vitamin C 1 tab PO DAILY 90 tabs 1RF
--- OUTSIDE RECORDS SUMMARY | 2025-03-14 07:54 | XMS_ITS | Patient Health Record ---
Author Organization [facility] Address [address] [place] [address] Care Team Providers Care Oral Surgeon Name Role Phone Khalil, Danita Primary Care Provider Emma Cheung Unavailable [phone] Allergies No Known Allergies Reason For Referral No Information Medications Medication SIG (Take, Route, Frequency, Duration) Notes Start Date End Date Status Omeprazole Active amLODIPine Besylate Active predniSONE 5 MG TAKE 5 TABLETS BY [facility] FOR 3 DAYS, 4 TABLETS FOR [...] Notes Problem Plantar fasciitis of left foot (2645761448408746 1) Plantar fasciitis of left foot (M72.2) Active confirmed Problem Localized, primary osteoarthritis of the ankle and/or foot (453516818) Primary osteoarthritis of left ankle (M19.072) Active confirmed Problem Interstitial myositis (01237114) Interstitial myositis of left foot (M60.172) Active confirmed Vital Signs Blood pressure diastolic 67 mm Hg 12/06/2024 Height 6ft 8in in 02/13/2025 Blood pressure systolic 122 mm Hg 12/06/2024 Weight 194 lbs 02/13/2025 BMI 21.31 kg/m2 02/13/2025 Procedures Procedure Date Ordered Date Performed Result Body Sit e 43410, Y0870-AHIOB/INJECT, JOINT/BURSA 11/15/2024 N/A Encounters Encounter Location Date Provider Diagnosis [address] [address] 10/11/2024 Emma Olvera Pain in left foot M79.672 ; Plantar fasciitis of left foot M72.2 ; Calcaneal spur, left foot M77.32 ; Interstitial myositis of left foot M60.172 and Bursitis of left foot M77.[address] [address] 11/15/2024 Emma Olvera Bursitis of left foot M77.52 ; Plantar fasciitis of left foot M72.2 ; Pain in left foot M79.672 ; Calcaneal spur, left foot M77.32 ; Interstitial myositis of left foot M60.172 and Primary osteoarthritis of left ankle M19.[address] [address] 12/06/2024 Emma Olvera Pain in left foot M79.672 ; Plantar fasciitis of left foot M72.2 ; Calcaneal spur, left foot M77.32 ; Interstitial myositis of left foot M60.172 and Bursitis of left foot M77.52 [facility] [address] [facility] [address] [place] [address] 02/13/2025 Emma Olvera Pain in left foot M79.672 ; Plantar fasciitis of left foot M72.2 ; Calcaneal spur, left foot M77.32 ; Interstitial myositis of left foot M60.172 and Bursitis of left foot M77.52 [facility] [address] [place] [address] 07/27/2024 Emma Olvera [facility] [address] 08/30/2024 Emma Olvera [address] [address] 11/14/2024 Emma Olvera [address] [address] 11/23/2024 Emma Olvera Pain in left foot M79.[address] [address] 12/06/2024 [facility] [address] 12/07/2024 [facility] [address] 02/13/2025 Emma Olvera Assessments Encounter Date Diagnosis (ICD Code) Assessment [...] X ray : Foot, left 3V 10/11/2024, [id number]-[id number]/INJECT, JOINT/BURSA 0 11/15/2024 Next Appt Details Provider Name:Emma sam, 03/29/2025 08:30:00 AM, [address] [place] [address], [phone], Insurance Providers Payer Name Payer Address Payer Phone Subscriber Number Group Number Insured Name Patient Relationship to Insured Coverage Start Date Coverage End Date [facility] All Others [address] [place] [address] [id number] Andrea Mclain Self - patient is the insured Medical (General) History Medical History History ICD Code Back, Hip, Knee Pain Broken Bone(s) Covid-19 Hepatitis C High Blood Pressure Measles Joint implants/screws Chicken Pox DVT and PE Surgical History Surgery Date(Month/Year) Inguinal Hernia 11/1990 Radius + Ulna 07/2011
[2025-03-14 07:58] VITALS: BP 122/76; PULSE 67; RESP 14; TEMP 36.6; O2SAT 97; BMI 28.4
== END 2025-03-14 08:44 | disposition home or self-care (01) ==
LOC: HO.HMCHD 07:50
PROVIDERS: PCP Physician Assistant; Visit Provider Physician Assistant
DX: I10 Essential (primary) hypertension (principal); R41.3 Other amnesia